=== PATIENT | female | born 1975 | race African-American/Black ===

== ENCOUNTER 2017-05-17 19:40 | Emergency (ER) | payer MEDICARE, MEDICAID ==
--- NOTE | 2017-05-17 20:30 | ER Document Report ---
ED Medical Screen (RME) - General Chief Complaint: Abdominal Pain Stated Complaint: ABDOMINAL PAIN,VOMITING Time Seen by Provider: 05/17/17 20:29 Notes: Patient reports approximately 2 days of fever chills and body aches. She also has cough and congestion. In addition she has vomiting. TRAVEL OUTSIDE OF THE [place] IN LAST 30 DAYS: No - Related Data Allergies/Adverse Reactions: Penicillins Allergy (Verified 05/17/17 20:26) Past Medical History Renal/ Medical History: Denies: Hx Peritoneal Dialysis Physical Exam - Vital signs Vitals: Temp Pulse Resp BP Pulse Ox 99.1 F 92 16 128/72 H 99 05/17/17 19:44 05/17/17 19:44 05/17/17 19:44 05/17/17 19:44 05/17/17 19:44 Course - Vital Signs Vital signs: Temp Pulse Resp BP Pulse Ox 99.1 F 92 16 128/72 H 99 05/17/17 19:44 05/17/17 19:44 05/17/17 19:44 05/17/17 19:44 05/17/17 19:44
--- NOTE | 2017-05-17 21:05 | RADIOLOGY REPORT (SQ) ---
EXAM DESCRIPTION: CHEST PA/LAT COMPLETED DATE/TIME: 05/17/2017 8:56 pm REASON FOR STUDY: cough/cp COMPARISON: None. EXAM PARAMETERS: NUMBER OF VIEWS: two views TECHNIQUE: Digital Frontal and Lateral radiographic views of the chest acquired. RADIATION DOSE: NA LIMITATIONS: none FINDINGS: LUNGS AND PLEURA: No opacities, masses or pneumothorax. No pleural effusion. MEDIASTINUM AND HILAR STRUCTURES: No masses or contour abnormalities. HEART AND VASCULAR STRUCTURES: Heart normal size. No evidence for failure. BONES: No acute findings. HARDWARE: None in the chest. OTHER: No other significant finding. IMPRESSION: NO SIGNIFICANT RADIOGRAPHIC FINDING IN THE CHEST. TECHNICAL DOCUMENTATION: JOB ID: [id number] Mobile Location, IP- All Rights Reserved
[2017-05-17 21:32] LABS: ABSOLUTE BASOPHILS # (AUTO) 0.1 10^3/uL (0.0-0.2); ABSOLUTE EOSINOPHILS # (AUTO) 0.1 10^3/uL (0.0-0.6); ABSOLUTE LYMPHOCYTES (AUTO) 3.6 10^3/uL (0.5-4.7); ABSOLUTE MONOCYTES (AUTO) 0.5 10^3/uL (0.1-1.4); ABSOLUTE NEUT (AUTO) 3.6 10^3/uL (1.7-8.2); BASOPHILS % (AUTO) 1.3 % (0-2); EOSINOPHILS % (AUTO) 1.5 % (0-6); HEMATOCRIT 37.9 % (36.0-47.0); HEMOGLOBIN 12.7 g/dL (12.0-15.5); HGB HCT DIFFERENCE 0.2; MEAN CORPUSCULAR HEMOGLOBIN 31.4 pg (27.0-33.4); MEAN CORPUSCULAR HGB CONC 33.5 g/dL (32.0-36.0); MEAN CORPUSCULAR VOLUME 94 fl (80-97); MONOCYTES % (AUTO) 6.9 % (3-13); RED BLOOD COUNT 4.03 10^6/uL (3.72-5.28); SEGMENTED NEUTROPHILS % (AUTO) 45.3 % (42-78); WHITE BLOOD COUNT 7.9 10^3/uL (4.0-10.5)
[2017-05-17 21:35] LABS: APPEARANCE,URINE SLIGHTLY-CLOUDY; BILIRUBIN,URINE NEGATIVE (NEGATIVE); GLUCOSE, URINE NEGATIVE (NEGATIVE); KETONES,URINE NEGATIVE (NEGATIVE); LEUKOCYTE ESTERASE,URINE NEGATIVE (NEGATIVE); NITRITE,URINE NEGATIVE (NEGATIVE); PROTEIN,URINE NEGATIVE (NEGATIVE); URINE SPECIFIC GRAVITY 1.009; UROBILINOGEN,URINE NEGATIVE mg/dL (<2.0)
[2017-05-17] MEDS ORDERED: ONDANSETRON HCL INJ/PF 4 MG/2 ML SDV IV ONE (22:12)
[2017-05-17] MEDS ORDERED: NORMAL SALINE 1000 ML 1,000 ML IV ONE (22:12)
--- NOTE | 2017-05-17 22:16 | ER Document Report ---
ED General - General Chief Complaint: Abdominal Pain Stated Complaint: ABDOMINAL PAIN,VOMITING Time Seen by Provider: 05/17/17 20:29 Notes: Patient is a 41-year-old female presents with complaint of cough and congestion as well as vomiting. She is says that she has been sick for a couple of days now. Initially started just has cough and congestion but now she is having trouble holding down food. She denies being around any sick contacts. She says her temp is been normal at home. She says she is abdominal pain is started after all the vomiting. No associated diarrhea. No blood in her emesis. She did use an inhaler at home. She denies history of asthma but says when she moved here in the past she developed pneumonia and she was given an inhaler for that that is why she had an inhaler at home. She does not smoke. No other complaints at this time. TRAVEL OUTSIDE OF THE [place] IN LAST 30 DAYS: No - Related Data Allergies/Adverse Reactions: Penicillins Allergy (Verified 05/17/17 20:26) Past Medical History - Social History Smoking Status: Never Smoker Chew tobacco use (# tins/day): No Frequency of alcohol use: None Drug Abuse: None Family History: Reviewed & Not Pertinent Patient has suicidal ideation: No Patient has homicidal ideation: No Renal/ Medical History: Denies: Hx Peritoneal Dialysis - Immunizations Hx Diphtheria, Pertussis, Tetanus Vaccination: No Review of Systems - Review of Systems Notes: My Normal Review Basic REVIEW OF SYSTEMS: CONSTITUTIONAL : Denies fever, chills, or sweats. Denies recent illness. EENT: Nasal congestion RESPIRATORY: cough GASTROINTESTINAL: Abdominal soreness. Vomiting GENITOURINARY: Denies difficulty urinating, painful urination, burning, frequency, or blood in urine. MUSCULOSKELETAL: Denies neck or back pain or joint pain or swelling. SKIN: Denies rash or skin lesions. NEUROLOGICAL: Denies altered mental status or loss of consciousness. Denies headache. Denies weakness or paralysis or loss of use of either side. Denies problems with gait or speech. Denies sensory or motor loss. ALL OTHER SYSTEMS REVIEWED AND NEGATIVE. Physical Exam - Vital signs Vitals: Temp Pulse Resp BP Pulse Ox 99.1 F 92 16 128/72 H 99 05/17/17 19:44 05/17/17 19:44 05/17/17 19:44 05/17/17 19:44 05/17/17 19:44 - Notes Notes: General Appearance: Well nourished, alert, cooperative, no acute distress, no obvious discomfort. Vitals: reviewed, See vital signs table. Head: no swelling or tenderness to the head Eyes: PERRL, EOMI, Conjuctiva clear Mouth: No decreasd moisture Throat: No tonsillar inflammation, No airway obstruction, No lymphadenopathy Neck: Supple, no neck tenderness Lungs: No wheezing, No rales, No rhonci, No accessory muscle use, good air exchange bilaterally. Heart: Normal rate, Regular rythm, No murmur, no rub Abdomen: Normal BS, soft, No rigidity, mild diffuse abdominal tenderness, No guarding, no rebound, Extremities: strength 5/5 in all extremities, good pulses in all extremities, no swelling or tenderness in the extremities, no edema. Skin: warm, dry, appropriate color, no rash Neuro: speech clear, oriented x 3, normal affect, responds appropriately to questions. Course - Re-evaluation Re-evalutation: 05/17/17 23:00 Patient's nausea is improved. We have given her some IV fluids. Laboratory evaluation is unremarkable. Symptoms seem consistent with a viral type infection. Informed her that she should still the low threshold to return to the ER immediately if she has increased abdominal pain, difficulty breathing, intractable vomiting, fevers, or she feels that she is worsening in any way. Patient agrees with plan and will be discharged home. Dictation of this chart was performed using voice recognition software; therefore, there may be some unintended grammatical errors. - Vital Signs Vital signs: Temp Pulse Resp BP Pulse Ox 99.1 F 92 16 128/72 H 99 05/17/17 19:44 05/17/17 19:44 05/17/17 19:44 05/17/17 19:44 05/17/17 19:44 - Laboratory Result Diagrams: 05/17/17 21:00 05/17/17 22:02 Laboratory results interpreted by me: 05/17/17 05/17/17 21:00 22:02 Est GFR (Non-Af Amer) 50 L Urine Blood SMALL H Discharge - Discharge Clinical Impression: Cough Vomiting Qualifiers: Vomiting type: unspecified Vomiting Intractability: non-intractable Nausea presence: with nausea Qualified Code(s): R11.2 - Nausea with vomiting, unspecified Condition: Good Disposition: HOME, SELF-CARE Additional Instructions: Lab tests looking at your blood were normal. We have given you some IV fluids. I suspect that most likely your symptoms are related to a viral infection. These are usually self-limiting in your body will usually be able to fight them off. It is extremely important that he do stay well-hydrated. Please take the medication as prescribed to help you with your nausea. Please return to the ER immediately if at any time you feel that you are getting worse, you have fevers , we have abdominal pain, or if you have intractable vomiting. Please follow- up with your doctor on Monday for close reevaluation. Prescriptions: Ondansetron [Zofran Odt 4 mg Tablet] 1 tab PO Q4H PRN #15 tab.rapdis PRN Reason: For Nausea/Vomiting Forms: Return to Work Referrals: NADYA LING MD [Primary Care Provider] - 05/22/17
[2017-05-17 22:32] LABS: ALANINE AMINOTRANSFERASE 36 U/L (9-52); ALBUMIN 4.4 g/dL (3.5-5.0); ALKALINE PHOSPHATASE 92 U/L (38-126); ANION GAP 11 (5-19); ASPARTATE AMINO TRANSFERASE 23 U/L (14-36); BILIRUBIN,DIRECT 0.3 mg/dL (0.0-0.4); BILIRUBIN,TOTAL 0.3 mg/dL (0.2-1.3); BLOOD UREA NITROGEN 18 mg/dL (7-20); CALCIUM 10.2 mg/dL (8.4-10.2); CARBON DIOXIDE 27 mmol/L (22-30); CHLORIDE 104 mmol/L (98-107); CREATININE RESULT 1.18 mg/dL (0.52-1.25); GLUCOSE 96 mg/dL (75-110); LIPASE 104.1 U/L (23-300); POTASSIUM 3.7 mmol/L (3.6-5.0); SODIUM 141.9 mmol/L (137-145); TOTAL PROTEIN 7.5 g/dL (6.3-8.2)
[2017-05-17 23:09] VITALS: BP 122/75
== END 2017-05-17 23:08 | disposition home or self-care (01) ==
LOC: ER 19:40
DX: R05 Cough (principal); R11.2 Nausea with vomiting, unspecified; R10.817 Generalized abdominal tenderness; R09.81 Nasal congestion; Z87.01 Personal history of pneumonia (recurrent); Z88.0 Allergy status to penicillin
CPT/HCPCS: 99284; 96374; 36415; 83690; 85025; 81025; 80053; 81001; 71020; J2405; J7030

== ENCOUNTER 2017-05-26 20:02 | Emergency (ER) | payer MEDICARE, MEDICAID ==
--- NOTE | 2017-05-26 22:21 | ER Document Report ---
ED General - General Chief Complaint: Swelling Stated Complaint: SWELLING IN HANDS AND FEET Time Seen by Provider: 05/26/17 21:35 Notes: Patient is a 41-year-old female with a past medical history of chronic pain and fibromyalgia who presents with concerns of swelling to her hands and feet. She was referred by her primary care doctor. She has not had a prior evaluation for this however by her primary physician. She states that this is been ongoing for the past 2-3 weeks and nothing is new or different today. Notes an associated constant, cramping, throbbing pain to the hands and feet. Denies any fever or constitutional symptoms. She has not noted any lesions or rashes to the affected area. She denies a history of similar symptoms in the past although does note that she frequently has generalized body pain secondary to her fibromyalgia. TRAVEL OUTSIDE OF THE [place] IN LAST 30 DAYS: No - Related Data Allergies/Adverse Reactions: Penicillins Allergy (Verified 05/26/17 22:38) Home Medications: Current Home Medications Fentanyl [Fentanyl] 1 each TD Q3D 05/26/17 [History] Fesoterodine Fumarate [Toviaz] 1 tab PO DAILY 05/26/17 [History] Gabapentin [Gabapentin] 1 tab PO TID 05/26/17 [History] Ibuprofen [Motrin 800 mg Tablet] 1 tab PO TID PRN 05/26/17 [History] Milnacipran HCl [Savella] 1 tab PO BID 05/26/17 [History] Oxycodone HCl [Oxycodone HCl] 1 tab PO DAILY 05/26/17 [History] Pentosan Polysulfate Sodium [Elmiron 100 mg Capsule] 1 cap PO TID 05/26/17 [ History] Tizanidine HCl [Tizanidine HCl] 1 tab PO BID 05/26/17 [History] Trazodone HCl 1 tab PO DAILY 05/26/17 [History] Past Medical History - General Information source: Patient - Social History Smoking Status: Never Smoker Frequency of alcohol use: None Drug Abuse: None Family History: Reviewed & Not Pertinent Patient has suicidal ideation: No Patient has homicidal ideation: No Renal/ Medical History: Denies: Hx Peritoneal Dialysis - Immunizations Hx Diphtheria, Pertussis, Tetanus Vaccination: No Review of Systems - Review of Systems Notes: Constitutional: Negative for fever. HENT: Negative for sore throat. Eyes: Negative for visual changes. Cardiovascular: Negative for chest pain. Respiratory: Negative for shortness of breath. Gastrointestinal: Negative for abdominal pain, vomiting or diarrhea. Genitourinary: Negative for dysuria. Musculoskeletal: Negative for back pain. Skin: Negative for rash. Neurological: Negative for headaches, weakness or numbness. 10 point ROS negative except as marked above and in HPI. Physical Exam - Vital signs Vitals: Temp Pulse Resp BP Pulse Ox 97.9 F 75 16 122/74 100 05/26/17 20:25 05/26/17 20:25 05/26/17 20:25 05/26/17 20:25 05/26/17 20:25 Interpretation: Normal Notes: PHYSICAL EXAMINATION: GENERAL: Well-appearing, well-nourished and in no acute distress. HEAD: Atraumatic, normocephalic. EYES: Pupils equal round and reactive to light, extraocular movements intact, sclera anicteric, conjunctiva are normal. ENT: nares patent, oropharynx clear without exudates. Moist mucous membranes. NECK: Normal range of motion, supple without lymphadenopathy LUNGS: Breath sounds clear to auscultation bilaterally and equal. No wheezes rales or rhonchi. HEART: Regular rate and rhythm without murmurs ABDOMEN: Soft, nontender, normoactive bowel sounds. No guarding, no rebound. No masses appreciated. EXTREMITIES: Normal range of motion, no pitting or edema. No cyanosis. NEUROLOGICAL: No focal neurological deficits. Moves all extremities spontaneously and on command. PSYCH: Normal mood, normal affect. SKIN: Warm, Dry, normal turgor, no rashes or lesions noted. Course - Re-evaluation Re-evalutation: 05/26/17 22:21 Patient presents with multiple vague complaints that did not appear to be concerning for any acute life-threatening pathology. Vitals are within normal limits at triage and at time of discharge. Physical examination is unremarkable. There is no evidence whatsoever of swelling in the hands or feet. Patient has tolerated oral intake without difficulty. Patient was not noted to be in distress at any point during their ER visit. At this time, based on the reassuring evaluation, I do not suspect an acute CA, pulmonary embolus, aortic dissection, acute intra-abdominal pathology, stroke, or sepsis.Will discharge with return precautions and follow-up recommendations. Verbal discharge instructions given a the bedside and opportunity for questions given. Medication warnings reviewed. Patient is in agreement with this plan and has verbalized understanding of return precautions and the need for primary care follow-up in the next 24-72 hours. 05/27/17 04:02 - Vital Signs Vital signs: Temp Pulse Resp BP Pulse Ox 97.7 F 55 L 18 100/58 L 98 05/26/17 23:27 05/26/17 23:27 05/26/17 23:27 05/26/17 23:27 05/26/17 23:27 - Laboratory Result Diagrams: 05/26/17 22:10 05/26/17 22:10 Laboratory results interpreted by me: 05/26/17 22:10 RBC 3.69 L Hgb 11.7 L Hct 34.5 L Seg Neuts % (Manual) 29 L Lymphocytes % (Manual) 61 H Abs Lymphs (Manual) 4.8 H Discharge - Discharge Clinical Impression: Hand and foot pain Qualifiers: Laterality: unspecified laterality Qualified Code(s): M79.643 - Pain in unspecified hand Condition: Good Disposition: HOME, SELF-CARE Additional Instructions: Your labs are normal today. Follow-up with your primary care doctor. Your pain may be related to her fibromyalgia. Continue take your home medications as directed. Referrals: MARLENA ESCOBEDO FNP-C [Primary Care Provider] - Follow up as needed
[2017-05-26 22:26] LABS: HEMATOCRIT 34.5 % (36.0-47.0); HEMOGLOBIN 11.7 g/dL (12.0-15.5); HGB HCT DIFFERENCE 0.6; MEAN CORPUSCULAR HEMOGLOBIN 31.6 pg (27.0-33.4); MEAN CORPUSCULAR HGB CONC 33.8 g/dL (32.0-36.0); MEAN CORPUSCULAR VOLUME 94 fl (80-97); RED BLOOD COUNT 3.69 10^6/uL (3.72-5.28); RED CELL DISTRIBUTION WIDTH 13.9 % (11.5-14.0); WHITE BLOOD COUNT 7.3 10^3/uL (4.0-10.5)
[2017-05-26 22:46] LABS: ALANINE AMINOTRANSFERASE 39 U/L (9-52); ALBUMIN 4.3 g/dL (3.5-5.0); ALKALINE PHOSPHATASE 95 U/L (38-126); ANION GAP 9 (5-19); ASPARTATE AMINO TRANSFERASE 31 U/L (14-36); BILIRUBIN,DIRECT 0.4 mg/dL (0.0-0.4); BILIRUBIN,TOTAL 0.4 mg/dL (0.2-1.3); BLOOD UREA NITROGEN 12 mg/dL (7-20); CALCIUM 9.9 mg/dL (8.4-10.2); CARBON DIOXIDE 26 mmol/L (22-30); CHLORIDE 106 mmol/L (98-107); CREATININE RESULT 0.86 mg/dL (0.52-1.25); GLUCOSE 87 mg/dL (75-110); SODIUM 141.2 mmol/L (137-145); TOTAL PROTEIN 7.4 g/dL (6.3-8.2)
[2017-05-26 22:50] LABS: BASOPHILS % (MANUAL) 0 % (0-2); EOSINOPHILS % (MANUAL) 0 % (0-6); LYMPHOCYTES % (MANUAL) 61 % (13-45); TOTAL CELLS COUNTED 100
[2017-05-26 22:58] LABS: POIKILOCYTOSIS SLIGHT; TARGET CELLS SLIGHT
[2017-05-26] MEDS ORDERED: NAPROXEN 250 MG TABLET PO ONE (23:14)
[2017-05-26 23:32] VITALS: BP 100/58
== END 2017-05-26 23:30 | disposition home or self-care (01) ==
LOC: ER 20:02
DX: M79.643 Pain in unspecified hand (principal); M79.89 Other specified soft tissue disorders; G89.29 Other chronic pain; M79.7 Fibromyalgia; Z79.899 Other long term (current) drug therapy
CPT/HCPCS: 99283; 36415; 85025; 80053; A9270

== ENCOUNTER 2017-10-17 17:53 | Emergency (ER) | payer MEDICARE, MEDICAID ==
[2017-10-17] MEDS ORDERED: IBUPROFEN 800 MG TABLET PO ONE (20:23)
[2017-10-17] MEDS ORDERED: DEXAMETHASONE 4 MG TABLET PO ONE (20:23)
--- NOTE | 2017-10-17 20:25 | ER Document Report ---
ED Neck/Back Problem - General Chief Complaint: Back Pain Stated Complaint: BACK PAIN Time Seen by Provider: 10/17/17 20:05 Mode of Arrival: Ambulatory Information source: Patient Notes: 42-year-old female presents to ED for bilateral back pain since May when she had a fall and injured her back with a compression fraction. She states is not her stopped hurting since then and is even gotten worse right side is more tender than left. States the pain is a 5 out of 5. States she stopped and ibuprofen with no relief. States she has an appointment with [facility] on Monday but cannot stand until then. States she is using Biofreeze to the back. TRAVEL OUTSIDE OF THE [place] IN LAST 30 DAYS: No - HPI Patient complains to provider of: Lower back Onset: Other - Since May Onset: Chronic Timing: Still present Quality of pain: Burning, Sharp Severity: Severe Pain Level: 5 Recent injury: No Associated symptoms: Lower back pain - Radiates to buttocks Exacerbated by: Movement of trunk, Sitting position Relieved by: Nothing Similar symptoms previously: Yes Recently seen / treated by doctor: No - Related Data Allergies/Adverse Reactions: Penicillins Allergy (Verified 05/26/17 22:38) Past Medical History - General Information source: Patient - Social History Smoking Status: Never Smoker Cigarette use (# per day): No Chew tobacco use (# tins/day): No Smoking Education Provided: No Frequency of alcohol use: None Drug Abuse: None Lives with: Family Family History: Reviewed & Not Pertinent Patient has suicidal ideation: No Patient has homicidal ideation: No - Past Medical History Cardiac Medical History: Reports: Hx Hypercholesterolemia Pulmonary Medical History: Reports: Hx Asthma EENT Medical History: Reports: None Neurological Medical History: Reports: None Endocrine Medical History: Reports: None Renal/ Medical History: Reports: None Malignancy Medical History: Reports: None GI Medical History: Reports: None Musculoskeltal Medical History: Reports Hx Arthritis, Reports Hx Fibromyalgia, Reports Hx Musculoskeletal Deformity, Reports Hx Musculoskeletal Trauma Skin Medical History: Reports None Psychiatric Medical History: Reports: Hx Anxiety Traumatic Medical History: Reports: Hx Fractures - Compression fracture L1 May 2017 Infectious Medical History: Reports: None Past Surgical History: Reports: Hx Neurologic Surgery - Cervical fusion, Hx Orthopedic Surgery - R shoulder rotator cuff repair; R knee torn meniscus; R foot bunionectomy, - Immunizations Hx Diphtheria, Pertussis, Tetanus Vaccination: No Review of Systems - Review of Systems Notes: Constitutional: [PRESENT: as per HPI. ABSENT: chills, fever(s), headache(s), weight gain, weight loss] Eyes: [ABSENT: visual disturbances] Ears: [ABSENT: hearing changes] Cardiovascular: [ABSENT: chest pain, dyspnea on exertion, edema, orthropnea, palpitations] Respiratory: [ABSENT: cough, hemoptysis] Gastrointestinal: [ABSENT: abdominal pain, constipation, diarrhea, hematemesis, hematochezia, nausea, vomiting] Genitourinary: [ABSENT: dysuria, hematuria] Musculoskeletal: Complaining of low back pain left and right Integumentary: [ABSENT: rash, wounds] Neurological: [ABSENT: abnormal gait, abnormal speech, confusion, dizziness, focal weakness, syncope] Psychiatric: [ABSENT: anxiety, depression, homicidal ideation, suicidal ideation ] Endocrine: [ABSENT: cold intolerance, heat intolerance, menstrual abnormalities , polydipsia, polyuria] Hematologic/Lymphatic: [ABSENT: easy bleeding, easy bruising, lymphadenopathy] Physical Exam - Vital signs Vitals: Temp Pulse Resp BP Pulse Ox 98.5 F 65 17 114/71 100 10/17/17 18:22 10/17/17 18:22 10/17/17 18:22 10/17/17 18:22 10/17/17 18:22 - Notes Notes: PHYSICAL EXAMINATION: GENERAL: Well-appearing, well-nourished and in no acute distress. HEAD: Atraumatic, normocephalic. EYES: Pupils equal round and reactive to light, extraocular movements intact, conjunctiva are normal. ENT: Nares patent, oropharynx clear without exudates. Moist mucous membranes. NECK: Normal range of motion, supple without lymphadenopathy LUNGS: Breath sounds clear to auscultation bilaterally and equal. No wheezes rales or rhonchi. HEART: Regular rate and rhythm without murmurs ABDOMEN: Soft, nontender, nondistended abdomen. No guarding, no rebound. No masses appreciated. Female : deferred Musculoskeletal: Normal range of motion, no pitting or edema. No cyanosis. Low back pain since May 2017. She states she has not followed up with a primary doctor or orthopedics. She states she has a appointment with [facility] on Monday this week but she just felt like the pain was too bad. States she has been using ibuprofen and Biofreeze.. NEUROLOGICAL: Cranial nerves grossly intact. Normal speech, normal gait. Normal sensory, motor exams PSYCH: Normal mood, normal affect. SKIN: Warm, Dry, normal turgor, no rashes or lesions noted. Course - Re-evaluation Re-evalutation: 10/18/17 01:24 Denies any recent signs and symptoms of cauda equina, she has normal sensation to her buttocks and groin area, has normal sensation to bilateral legs. Has normal sensation to the lower back. Denies any loss of control of bowel bladder or loss of control of the muscles of the legs. Patient is able to walk with the even steady gait. Patient was treated with AirSense Wireless dispense pack in the emergency room and given a prescription for Flexeril. Patient to follow-up with the orthopedic doctor as instructed. - Vital Signs Vital signs: Temp Pulse Resp BP Pulse Ox 97.9 F 63 20 119/71 98 10/17/17 22:15 10/17/17 22:15 10/17/17 22:15 10/17/17 22:15 10/17/17 22:15 - Laboratory Laboratory results interpreted by me: 10/17/17 20:40 Urine Urobilinogen 2.0 H Discharge - Discharge Clinical Impression: Chronic back pain greater than 3 months duration Condition: Stable Disposition: HOME, SELF-CARE Additional Instructions: Chronic Pain Control Stress, inactivity, and depression make pain more severe regardless of the cause of the pain. Stress and poor physical condition can cause pain such as headaches and backache. Relaxation: Rest in a quiet place with your eyes closed for 20 minutes twice daily. Concentrate on a pleasant image, or simply "feel" your breathing. Clear your mind. Stress management: Deal with your "stressors." Either take action, or eliminate the stressor from your life. Don't let things hang over you. Accept those things you can't change. Nutrition: Eat small, balanced meals -- don't skip, don't overeat. Meals should be high-carbohydrate, low-sugar, low-fat. Exercise: Exercise helps painful conditions and eases stress. Get 30 minutes of moderate exercise, five days a week. Do an activity that does not flare your pain. Precautions: Pain which continues to disrupt daily activities, or which changes in nature, requires a medical evaluation. Pain Clinic referral is available. We do not manage chronic pain in the Emergency Department. We will try to appropriately help you through an acute flare of your chronic painful condition , but for on-going chronic pain that does not improve, you will need to see your private doctor or pain management nurse practitioner. We do not provide repeated medication management of chronic painful conditions. If you wish, we can provide the name of local pain management physicians. Chronic Back Pain Chronic back pain (pain persisting longer than three months) is a common problem. A medical evaluation can look for herniated disc, arthritis, osteoporosis, tumors, and infections. But at least half the time, there's no obvious treatable cause. Anxiety and depression tend to worsen back pain. Ibuprofen or other anti-inflammatory medicine can help. A heating pad, used for 15-20 minutes at a time, can ease pain. For this type of back pain, narcotic medicines should be avoided. Muscle relaxers are rarely helpful unless you're having spasms. Activity is important. Find an aerobic exercise program that your back can tolerate. Too much rest makes back pain worse. Specific back exercises are usually prescribed to strengthen the back and abdominal muscles. Often, a physical therapist can help. Avoid heavy lifting, working while bent over, or standing with both knees straight. Most back pain patients do better with a firm mattress. If new symptoms of a "herniated disc" (radiation of pain, numbness, or tingling down the back of the leg or weakness in the leg) occur, you should be re-examined. STEROID MEDICATION: You have been given a medicine of the cortisone/steroid class. This medication is used to control inflammation or allergy. It is usually only given for a short period of time, until the acute process subsides. There are usually no side effects from short-term use of cortisone-like medications. Some persons feel an increased sense of well-being and are not sleepy at bedtime. Long-term use of cortisone medications is best avoided, unless required for a severe condition. If your condition does not remit, or relapses after the course of corticosteroid medication, you should consult your physician. Ibuprofen Ibuprofen is an excellent, safe drug for pain control. In addition, it has potent antiinflammatory effects which are beneficial, especially in the treatment of injuries, arthritis, or tendonitis. It's best to take ibuprofen with food. Persons with ulcer disease or allergy to aspirin should notify their physician of this before taking ibuprofen. Take the medication exactly as prescribed. Don't take additional doses unless instructed to do so by your doctor. If you develop wheezing, shortness of breath, hives, faintness, stomach pain, vomiting, or dark black stools, return for re-evaluation at once. ICE PACKS: Apply ice packs frequently against the painful area. Many different schedules are recommended, such as "20 minutes on, 20 minutes off" or "one hour ice, two hours rest." If you need to work, you may need to go longer between ice treatments. You should plan to have the area ice packed AT LEAST one fourth of the time. The ice should be applied over the wrap, tape, or splint, or over a layer of cloth -- not directly against the skin. Some ice bags have a built-in cloth and can be put directly on the skin. WARM PACKS: After approximately two days, apply gentle heat (such as a heating pad or hot water bottle) for about 20 to 30 minutes about every two hours -- at least four times daily. Warmth and elevation will help you make a more rapid recovery , and will ease the pain considerably. Do not use HOT heat, and never apply heat for longer than 30 minutes. The continuous heat can invisibly damage skin and muscles -- even when no burn is seen on the surface. Damaged muscles can make you MORE sore. MUSCLE RELAXERS: Muscle relaxing medications are usually prescribed for acute muscle spasm or injury to the neck and back. They are often combined with antiinflammatory pain medication for increased relief. You may stop the muscle relaxer when the pain and stiffness have improved. Start the medication again if spasms recur. Muscle relaxers may cause drowsiness, especially with the first dose. Do not operate machinery or drive while under the effects of the medication. Most muscle relaxers last up to 24 hours. Do not combine the medication with alcohol. ORAL NARCOTIC MEDICATION: You have been given a AirSense Wireless dispense pack for pain control. This medication is a narcotic. It's best taken with food, as nausea can result if taken on an empty stomach. Don't operate machinery or drive within six hours of taking this medication. Do not combine this medicine with alcohol, or with any medication which can cause sedation (such as cold tablets or sleeping pills) unless you get permission from the physician. Narcotics tend to cause constipation. If possible, drink plenty of fluids and eat a diet high in fiber and fruits. FOLLOW-UP CARE: If you have been referred to a physician for follow-up care, call the physician s office for an appointment as you were instructed or within the next two days. If you experience worsening or a significant change in your symptoms, notify the physician immediately or return to the Emergency Department at any time for re-evaluation. Prescriptions: Cyclobenzaprine HCl [Flexeril 10 mg Tablet] 10 mg PO TIDP PRN #15 tab PRN Reason: Referrals: MARLENA ESCOBEDO FNP-C [Primary Care Provider] - Follow up as needed
[2017-10-17 21:00] LABS: APPEARANCE,URINE CLEAR; BILIRUBIN,URINE NEGATIVE (NEGATIVE); COLOR,URINE YELLOW; GLUCOSE, URINE NEGATIVE (NEGATIVE); KETONES,URINE NEGATIVE (NEGATIVE); LEUKOCYTE ESTERASE,URINE NEGATIVE (NEGATIVE); NITRITE,URINE NEGATIVE (NEGATIVE); PROTEIN,URINE NEGATIVE (NEGATIVE); URINE SPECIFIC GRAVITY 1.024
[2017-10-17] MEDS ORDERED: HYDROCODONE/ACETAMINOPHEN 5-325 MG (6 TAB/ER DISP) PO PRN (22:03)
[2017-10-17 22:17] VITALS: BP 119/71
== END 2017-10-17 22:17 | disposition home or self-care (01) ==
LOC: ER 17:53
DX: G89.29 Other chronic pain (principal); M54.5 Low back pain; J45.909 Unspecified asthma, uncomplicated; Z88.0 Allergy status to penicillin
CPT/HCPCS: 99283; 81001; A9270 ×3

== ENCOUNTER 2018-02-07 18:26 | Emergency (ER) | payer MEDICARE, MEDICAID ==
--- NOTE | 2018-02-07 19:52 | ER Document Report ---
ED GI/ - General Chief Complaint: Abdominal Pain Stated Complaint: NAUSEA Time Seen by Provider: 02/07/18 18:46 Mode of Arrival: Ambulatory Information source: Patient TRAVEL OUTSIDE OF THE [place] IN LAST 30 DAYS: No - HPI Patient complains to provider of: Vaginal discharge Notes: 02/07/18 19:51 Patient is here with complaints of vaginal discharge. Her partner is being seen for possible sexually transmitted infection as well. She states that over the last 3 or 4 days she has been having some discharge. She also complains some mild discomfort in her pelvic area. She denies any dysuria or hematuria. No abdominal pain. No nausea, vomiting, diarrhea. No flank pain. Nothing seems to make the symptoms better or worse. No chest pain or shortness of breath. No rash. - Related Data Allergies/Adverse Reactions: Penicillins Allergy (Verified 02/07/18 18:29) Past Medical History - Social History Smoking Status: Former Smoker Frequency of alcohol use: None Drug Abuse: None Family History: Reviewed & Not Pertinent Patient has suicidal ideation: No Patient has homicidal ideation: No - Past Medical History Cardiac Medical History: Reports: Hx Hypercholesterolemia Pulmonary Medical History: Reports: Hx Asthma Renal/ Medical History: Denies: Hx Peritoneal Dialysis Musculoskeltal Medical History: Reports Hx Arthritis, Reports Hx Fibromyalgia, Reports Hx Musculoskeletal Deformity, Reports Hx Musculoskeletal Trauma Psychiatric Medical History: Reports: Hx Anxiety Traumatic Medical History: Reports: Hx Fractures - Compression fracture L1 May 2017 Past Surgical History: Reports: Hx Neurologic Surgery - Cervical fusion, Hx Orthopedic Surgery - R shoulder rotator cuff repair; R knee torn meniscus; R foot bunionectomy, - Immunizations Hx Diphtheria, Pertussis, Tetanus Vaccination: No Review of Systems - Review of Systems -: Yes All other systems reviewed and negative Physical Exam - Vital signs Vitals: Temp Pulse Resp BP Pulse Ox 98.6 F 65 16 122/83 100 02/07/18 18:42 02/07/18 18:42 02/07/18 18:42 02/07/18 18:42 02/07/18 18:42 - Notes Notes: GENERAL: alert, cooperative, nontoxic, no distress. HEAD: normocephalic, atraumatic EYES: conjunctiva pink without discharge, no external redness or swelling. EARS: no external swelling, no external redness NOSE: atraumatic, no external swelling MOUTH/THROAT: mucous membranes moist and pink, posterior pharynx without erythema, swelling, exudate. No trismus or drooling. NECK: soft, supple, full range of motion, no meningismus. CHEST: no distress, lungs clear and equal throughout. No wheezing, rales, rhonchi. CARDIAC: regular rate and rhythm, no murmur, normal capillary refill, normal pulses. No peripheral edema noted. ABDOMEN: Soft, nontender. No rebound tenderness or guarding. No mass. BACK: full range of motion, no CVA tenderness. EXTREMITIES: full range of motion of all extremities. No redness, no swelling. NEURO: alert and oriented x 3, no focal deficits, full range of motion of all extremities. PYSCH: appropriate mood, affect. Patient is cooperative. SKIN: pink, warm, dry, no rash. : Performed with female aerial sprayer at the bedside. No external lesions. Small amount of thin vaginal discharge present. Cervix is closed. No vaginal bleeding. No cervical motion tenderness, adnexal tenderness or masses on bimanual Course - Re-evaluation Re-evalutation: 02/07/18 20:58 Patient is nontoxic-appearing with stable vitals. She is here with complaints of vaginal discharge. Her partner is being seen for possible sexually transmitted infection exposure as well. She denies fever. Complains some mild but has no tenderness on exam. She has no fever. No dysuria. Her exam is benign. Urinalysis shows no signs of infection. Urine is negative. Gonorrhea chlamydia cultures are currently pending. Wet prep is negative. Patient was treated with Rocephin and Zithromax prophylactically due to her potential exposure. She will was instructed to follow-up with her doctor the next available appointment. Follow-up sooner for worsening pain, fever, persistent vomiting, or for any further concerns. 02/07/18 20:59 The patient is noted to have elevated blood pressure during today's emergency department visit. The patient was informed of this finding. The patient was instructed that this may be related to pre-hypertension and requires further evaluation with a primary care provider. The patient has no hypertensive symptoms at this time. The patient's emergency department workup and current diagnosis were explained to the patient and or family. Follow-up instructions were provided. Medications if prescribed were discussed. Instructions for when to return to the emergency department including specific worrisome symptoms were discussed with the patient and/or family. - Vital Signs Vital signs: Temp Pulse Resp BP Pulse Ox 98.6 F 65 16 122/83 100 02/07/18 18:42 02/07/18 18:42 02/07/18 18:42 02/07/18 18:42 02/07/18 18:42 - Laboratory Laboratory results interpreted by me: 02/07/18 19:37 Urine Ketones TRACE H Urine Blood SMALL H Urine Urobilinogen 4.0 H Urine Ascorbic Acid 40 H Discharge - Discharge Clinical Impression: Vaginal discharge Condition: Stable Disposition: HOME, SELF-CARE Instructions: Vaginitis ([facility]) Additional Instructions: Follow-up with your doctor at the next available appointment. Follow-up sooner for worsening pain, fever, persistent vomiting, or any further concerns. Your blood pressure was elevated during today's visit. Have this rechecked with your doctor. Forms: Elevated Blood Pressure, Smoking Cessation Education Referrals: MARLENA ESCOBEDO FNP-C [Primary Care Provider] - Follow up as needed
[2018-02-07] MEDS ORDERED: CEFTRIAXONE INJ 250 MG VIAL IM ONE (20:02)
[2018-02-07] MEDS ORDERED: AZITHROMYCIN 250 MG TABLET PO ONE (20:02)
[2018-02-07 20:03] LABS: APPEARANCE,URINE SLIGHTLY-CLOUDY; BILIRUBIN,URINE NEGATIVE (NEGATIVE); CALCIUM OXALATE CRYSTALS,URINE TOO NUMEROUS TO CNT /HPF; COLOR,URINE YELLOW; GLUCOSE, URINE NEGATIVE (NEGATIVE); KETONES,URINE TRACE mg/dL (NEGATIVE); LEUKOCYTE ESTERASE,URINE NEGATIVE (NEGATIVE); NITRITE,URINE NEGATIVE (NEGATIVE); PROTEIN,URINE NEGATIVE (NEGATIVE)
[2018-02-07 20:27] LABS: BACTERIA (WET MOUNT) 3+ BACTERIA SEEN; RBCS (WET MOUNT) NO RBCS SEEN; T.VAGINALIS (WET MOUNT) NO TRICHOMONAS SEEN; WBCS (WET MOUNT) 2+ WBCS SEEN; YEAST (WET MOUNT) NO YEAST SEEN
[2018-02-07 21:21] VITALS: BP 121/75
[2018-02-07 21:55] LABS: CHLAM PCR NOT DETECTED (NOT DETECT); GON PCR NOT DETECTED (NOT DETECT)
== END 2018-02-07 21:15 | disposition home or self-care (01) ==
LOC: ER 18:26
DX: N89.8 Other specified noninflammatory disorders of vagina (principal); R19.8 Other specified symptoms and signs involving the digestive system and abdomen; R03.0 Elevated blood-pressure reading, without diagnosis of hypertension; J45.909 Unspecified asthma, uncomplicated; Z20.2 Contact with and (suspected) exposure to infections with a predominantly sexual mode of transmission; Z88.0 Allergy status to penicillin; Z87.891 Personal history of nicotine dependence
CPT/HCPCS: 99284; 96372; 87210; 81025; 81001; 87491; 87591; A9270; J0696

== ENCOUNTER 2018-07-06 03:49 | Emergency (ER) | payer MEDICARE, MEDICAID ==
--- NOTE | 2018-07-06 04:34 | ER Document Report ---
ED General - General Chief Complaint: Abdominal Pain Stated Complaint: NAUSEA Time Seen by Provider: 07/06/18 03:58 Notes: 42-year-old female with a history of fibromyalgia chronic pain and continuous narcotic use presents with abdominal pain/discomfort and vomiting. She says that for the last month or 6 weeks she has had intermittent feeling of "water in my throat" right before she needs to vomit. She has not vomiting much and is generally just nauseous. This occurs at all times throughout the day and is worse after eating including tonight which made her come to the ED. She does not currently have abdominal pain. She has no vaginal bleeding and has not had a period in over a decade. She is . She was evaluated in the last couple of weeks here in the ED with full abdominal workup all of which was negative including STD testing. She denies right upper quadrant pain. She denies a gallstone history. TRAVEL OUTSIDE OF THE [place] IN LAST 30 DAYS: No - Related Data Allergies/Adverse Reactions: Penicillins Allergy (Verified 02/07/18 18:29) Past Medical History - Social History Smoking Status: Unknown if Ever Smoked Family History: Reviewed & Not Pertinent - Medical History Medical History: Other - Fibromyalgia chronic pain narcotic use - Past Medical History Cardiac Medical History: Reports: Hx Hypercholesterolemia Pulmonary Medical History: Reports: Hx Asthma Renal/ Medical History: Denies: Hx Peritoneal Dialysis Musculoskeletal Medical History: Reports Hx Arthritis, Reports Hx Fibromyalgia, Reports Hx Musculoskeletal Deformity, Reports Hx Musculoskeletal Trauma Psychiatric Medical History: Reports: Hx Anxiety Traumatic Medical History: Reports: Hx Fractures - Compression fracture L1 May 2017 Past Surgical History: Reports: Hx Neurologic Surgery - Cervical fusion, Hx Orthopedic Surgery - R shoulder rotator cuff repair; R knee torn meniscus; R foot bunionectomy, - Immunizations Hx Diphtheria, Pertussis, Tetanus Vaccination: No Review of Systems - Review of Systems Notes: REVIEW OF SYSTEMS GEN: Denies fever, chills, weight loss ENT: Denies sore throat, nasal discharge, ear pain EYES: Denies blurry vision, eye pain, discharge CV: Denies chest pain, palpitations, edema RESP: Denies cough, shortness of breath, wheezing GI: Remittent abdominal pain with nausea MSK: Denies joint pain/swelling, edema, SKIN: Denies rash, skin lesions LYMPH: Denies swollen glands/lymph nodes NEURO: Denies headache, focal weakness or numbness, dizziness PSYCH: Denies depression, suicidal or homicidal ideation PHYSICAL EXAMINATION General: No acute distress, well-nourished Head: Atraumatic, normocephalic ENT: Mouth normal, oropharynx moist, no exudates or tonsillar enlargement Eyes: Conjunctiva normal, pupils equal, lids normal Neck: No JVD, supple, no guarding CVS: Normal rate, regular rhythm, no murmurs Resp: No resp distress, equal and normal breath sounds bilaterally GI: Nondistended, soft, no tenderness to palpation, no rebound or guarding Ext: No deformities, no edema, normal range of motion in upper and lower ext Back: No CVA or midline TTP Skin: No rash, warm Lymphatic: No lymphadeopathy noted Neuro: Awake, alert. Face symmetric. GCS 15. Physical Exam - Vital signs Vitals: Temp Pulse Resp BP Pulse Ox 97.9 F 74 16 125/76 99 07/06/18 03:49 07/06/18 03:49 07/06/18 03:49 07/06/18 03:49 07/06/18 03:49 Course - Re-evaluation Re-evalutation: 07/06/18 04:53 Patient presents with over a month of intermittent abdominal discomfort possible GERD symptoms and nausea. She is not vomiting very much. She has a history of opioid use, chronically and fibromyalgia but does not have any serious abdominal diagnoses. Never had endoscopy. Not taking antacids. Evaluated recently in the ED with a negative workup. Today vitals are normal with no abdominal tenderness. Will rule out . Will start on lansoprazole and gives as needed Zofran. I told the patient she may need a referral to GI, and she is able to follow-up with her primary care. She is continuously tolerating p.o. I have a low suspicion for an acute abdominal issue, and do not believe she needs reimaging. I have discussed with the patient there likely diagnosis, aftercare plan, follow-up plans and my usual and customary return precautions. They verbalized understanding of this. - Vital Signs Vital signs: Temp Pulse Resp BP Pulse Ox 97.9 F 74 16 125/76 99 07/06/18 03:49 07/06/18 03:49 07/06/18 03:49 07/06/18 03:49 11/16/18 03:49 Discharge - Discharge Clinical Impression: Nausea and vomiting Qualifiers: Vomiting type: unspecified Vomiting Intractability: non-intractable Qualified Code(s): R11.2 - Nausea with vomiting, unspecified Condition: Good Disposition: HOME, SELF-CARE Prescriptions: Lansoprazole [Heartburn Treatment 24 Hour] 15 mg PO DAILY #30 capsule. Ondansetron [Zofran Odt 4 mg Tablet] 1 - 2 tab PO Q4H PRN #15 tab.rapdis PRN Reason: For Nausea/Vomiting Referrals: MARLENA ESCOBEDO FNP-C [Primary Care Provider] - Follow up as needed
[2018-07-06 06:49] VITALS: BP 109/70
== END 2018-07-06 06:45 | disposition home or self-care (01) ==
LOC: ER 03:49
DX: R11.2 Nausea with vomiting, unspecified (principal); R09.89 Other specified symptoms and signs involving the circulatory and respiratory systems; R10.9 Unspecified abdominal pain; J45.909 Unspecified asthma, uncomplicated; M79.7 Fibromyalgia; Z79.891 Long term (current) use of opiate analgesic; Z88.0 Allergy status to penicillin
CPT/HCPCS: 81025; 99284

== ENCOUNTER 2018-10-24 06:27 | Inpatient (IN) | payer MEDICARE, MEDICAID ==
--- NOTE | 2018-10-24 07:29 | ER Document Report ---
ED General - General Chief Complaint: Chest Wall Pain Stated Complaint: CHEST PAIN Time Seen by Provider: 10/24/18 06:56 Primary Care Provider: MARLENA ESCOBEDO FNP-C [NO LOCAL MD] - Follow up as needed Notes: 43-year-old female presents to the ER complaining of sharp chest pain when she breathes. Patient stated to be going on for 2 weeks. It began when she developed a sore throat cough muscle aches. She is coughing up green yellow sputum. The patient went to [place] and got prescription for antibiotics. Stated she has gotten better from the sore throat cough and congestion portion of this however she has had sharp chest pain ever since she describes it on the left side of her chest and goes to her back and hurts when she moves it hurts when she takes a deep breath she describes it as and rates it as severe and is sharp. It is worse with movement and taking a deep breath. Denies calf pain or leg swelling. Has no history of DVT or PE in the past. On review of systems the patient does complain of black tarry stools for the last month. She is felt a lot of malaise and fatigue. But did not think a lot of it. TRAVEL OUTSIDE OF THE [place] IN LAST 30 DAYS: No - Related Data Allergies/Adverse Reactions: Penicillins Allergy (Verified 10/24/18 08:18) Past Medical History - Social History Smoking Status: Smoker,Current Status Unk Family History: Reviewed & Not Pertinent - Past Medical History Cardiac Medical History: Reports: Hx Hypercholesterolemia Pulmonary Medical History: Reports: Hx Asthma Renal/ Medical History: Denies: Hx Peritoneal Dialysis Musculoskeletal Medical History: Reports Hx Arthritis, Reports Hx Fibromyalgia, Reports Hx Musculoskeletal Deformity, Reports Hx Musculoskeletal Trauma Psychiatric Medical History: Reports: Hx Anxiety Traumatic Medical History: Reports: Hx Fractures - Compression fracture L1 May 2017 Past Surgical History: Reports: Hx Neurologic Surgery - Cervical fusion, Hx Orthopedic Surgery - R shoulder rotator cuff repair; R knee torn meniscus; R foot bunionectomy, - Immunizations Hx Diphtheria, Pertussis, Tetanus Vaccination: No Review of Systems - Review of Systems Constitutional: Chills, Fever, Malaise EENT: Throat pain Cardiovascular: Chest pain. denies: Palpitations, Heart racing, Edema Respiratory: Cough, Hurts to breathe, Short of breath Gastrointestinal: Black stools Genitourinary: denies: Discharge, Frequency, Hematuria Musculoskeletal: Back pain Neurological/Psychological: Weakness. denies: Headaches -: Yes All other systems reviewed and negative Physical Exam - Vital signs Vitals: Temp Pulse Resp BP Pulse Ox 99.1 F 84 18 98/60 L 99 10/24/18 06:39 10/24/18 06:39 10/24/18 06:39 10/24/18 06:39 10/24/18 06:39 - Notes Notes: GENERAL_APPEARANCE: well_nourished, alert, cooperative VITALS: reviewed, see vital signs table. HEAD: no_swelling\tenderness on the head. EYES: PERRL, EOMI, conjunctiva_clear. NOSE: no_nasal_discharge. MOUTH: (-)decreased moisture. THROAT: no_throat_inflammation, no_airway_obstruction. no_lymphadenopathy NECK: supple, no_neck_tenderness, (-)thyromegaly. BACK: no_back_tenderness. CHEST_WALL: Left parasternal discomfort no crepitus and subcutaneous emphysema this is along the left parasternal cartilages. LUNGS: no_wheezing, no_rales, no_rhonchi, (-)accessory muscle use, good air exchange bilateral. HEART: normal_rate, normal_rhythm, normal_S1, normal_S2, (-)S3, (-)S4, no_murmur, no_rub. ABDOMEN: normal_BS, soft, no_abd_tenderness, (-)guarding, (-)rebound, no_organomegaly, no_abd_masses. EXTREMITIES: good pulses in all_extremities, no_swelling\tenderness in the extremities, no_edema. SKIN: warm, dry, good_color, no_rash. MENTAL_STATUS: speech_clear, oriented_X_3, normal_affect, resp onds_appropriately to questions. Course - Re-evaluation Re-evalutation: 10/24/18 07:28 43-year-old female comes into the ER complaining of pleuritic chest pain for the last 2 weeks. She has no history of DVT or PE in the past. She did have what sounded to be either a bronchitis or URI 2 weeks ago and was treated for that however she persistently has had sharp chest pain with inspiration and movement. This may be chest wall pain versus pneumonia versus pleurisy versus pulmonary embolism. Since she has had this persistently for 2 weeks we will go ahead and scan her chest. Other differentials include aortic dissection though I think this is a lot less likely. Also get EKG and enzymes however her clinical history does not seem consistent with ischemic coronary artery disease. 10/24/18 11:03 The patient does complain of black tarry stools for the last month on review of systems her hemoglobin is 8.2 last hemoglobin had in 2017 was above 12. With nurse in the room the patient consented and agreed and we did a digital rectal exam which showed no masses no external or internal hemorrhoids good rectal tone and dark stool which was strongly guaiac positive. We will add a type and screen to the blood work the patient has never seen a GI doctor before. Speak with the hospitalist service for hospitalization. - Vital Signs Vital signs: Temp Pulse Resp BP Pulse Ox 99.1 F 84 14 102/71 100 10/24/18 06:39 10/24/18 06:39 10/24/18 10:01 10/24/18 10:00 10/24/18 10:01 - Laboratory Result Diagrams: 10/24/18 07:45 10/24/18 07:45 Laboratory results interpreted by me: 10/24/18 10/24/18 07:45 07:45 RBC 2.59 L Hgb 8.2 L Hct 24.6 L RDW 14.9 H BUN 23 H Est GFR (Non-Af Amer) 59 L - Diagnostic Test Radiology reviewed: Reports reviewed Radiology results interpreted by me: 10/24/18 11:03 Chest/Abdomen CTA 10/24/18 07:26 IMPRESSION: 1. No evidence for acute pulmonary emboli. 2. Bibasilar scar or atelectasis, more so on the right. A focal area of pleural thickening in the right lower lobe, best noted on coronal image 58, series 601. This finding may be related to inflammatory changes, with other etiologies not entirely excluded. A follow-up noncontrast CT chest examination is suggested in three months. Discharge - Discharge Clinical Impression: Malaise and fatigue, Dyspnea, Pleuritic chest pain GI bleed Qualifiers: GI bleed type/associated pathology: unspecified peptic ulcer Qualified Code(s): K27.4 - Chronic or unspecified peptic ulcer, site unspecified, with hemorrhage Condition: Good Disposition: ADMITTED INPATIENT Admitting Provider: Hospitalist Unit Admitted: Telemetry Referrals: MARLENA ESCOBEDO FNP-C [NO LOCAL MD] - Follow up as needed
[2018-10-24 08:01] LABS: ABSOLUTE EOSINOPHILS # (AUTO) 0.1 10^3/uL (0.0-0.6); ABSOLUTE LYMPHOCYTES (AUTO) 3.2 10^3/uL (0.5-4.7); ABSOLUTE MONOCYTES (AUTO) 0.5 10^3/uL (0.1-1.4); ABSOLUTE NEUT (AUTO) 4.7 10^3/uL (1.7-8.2); BASOPHILS % (AUTO) 0.3 % (0-2); EOSINOPHILS % (AUTO) 0.6 % (0-6); HEMATOCRIT 24.6 % (36.0-47.0); HEMOGLOBIN 8.2 g/dL (12.0-15.5); LYMPHOCYTES % (AUTO) 37.5 % (13-45); MEAN CORPUSCULAR HEMOGLOBIN 31.9 pg (27.0-33.4); MEAN CORPUSCULAR HGB CONC 33.5 g/dL (32.0-36.0); MEAN CORPUSCULAR VOLUME 95 fl (80-97); MONOCYTES % (AUTO) 6.2 % (3-13); PLATELET COUNT 428 10^3/uL (150-450); RED BLOOD COUNT 2.59 10^6/uL (3.72-5.28); RED CELL DISTRIBUTION WIDTH 14.9 % (11.5-14.0); SEGMENTED NEUTROPHILS % (AUTO) 55.4 % (42-78); TOTAL CELLS COUNTED % (AUTO) 100 %; WHITE BLOOD COUNT 8.5 10^3/uL (4.0-10.5)
[2018-10-24 08:18] LABS: ANION GAP 8 (5-19); BLOOD UREA NITROGEN 23 mg/dL (7-20); CALCIUM 9.5 mg/dL (8.4-10.2); CARBON DIOXIDE 29 mmol/L (22-30); CHLORIDE 104 mmol/L (98-107); GLUCOSE 92 mg/dL (75-110); POTASSIUM 4.7 mmol/L (3.6-5.0); SODIUM 140.9 mmol/L (137-145)
--- NOTE | 2018-10-24 10:08 | RADIOLOGY REPORT (SQ) ---
EXAM DESCRIPTION: CTA CHEST COMPLETED DATE/TIME: 10/24/2018 9:46 am REASON FOR STUDY: Pleuritic chest pain COMPARISON: None. TECHNIQUE: CT scan of the chest performed using helical scanning technique with dynamic intravenous contrast injection. Images reviewed with lung, soft tissue and bone windows. Reconstructed coronal and sagittal MPR images reviewed. Additional 3 dimensional post-processing performed to develop Maximal Intensity Projection images (LA P). All images stored on PACS. All CT scanners at this facility use dose modulation, iterative reconstruction, and/or weight based d osing when appropriate to reduce radiation dose to as low as reasonably achievable (ALARA). [facility]: Dose Right [facility]: CareDose [facility]: Dose Right [facility]: Teradose 4D [facility]: SaveFans! CONTRAST TYPE AND DOSE: contrast/concentration: Isovue 350.00 mg/ml; Total Contrast Delivered: 71.0 ml; Total Saline Delivered: 90.0 ml Contrast bolus optimized for the pulmonary arteries. Not diagnostic for the aorta. RENAL FUNCTION: Creatinine - 1.02 BUN=23 RADIATION DOSE: CT Rad equipment meets quality standard of care and radiation dose reduction techniq ues were employed. CTDIvol: 14.3 - 19.8 mGy. DLP: 508 mGy-cm. . LIMITATIONS: None. FINDINGS: LUNGS AND PLEURA: Bibasilar scar or atelectasis, more so on the right. A focal air pleur al thickening in the right lower lobe, best noted on coronal image 58, series 601. This finding may be related inflammatory changes, with other etiologies not entirely excluded. No acute pulmonary con solidation. No pneumothorax or pleural effusion. The central airways are clear. AORTA AND GREAT VESSELS: No aneurysm. Contrast bolus not optimized for the aorta. HEART: No pericardial effusion. No significant coronary artery calcifications. PULMONARY ARTERIES: No emboli visualized in the main pulmonary arteries or the segmental branches. HILAR AND MEDIASTINAL STRUCTURES: No identified masses or abnormal nodes. HARDWARE: None in the chest. UPPER ABDOMEN: No significant findings. Limited exam. THYROID AND OTHER SOFT TISSUES: No masses. No adenopathy. BONES: Mild compression deformity of one of the upper lumbar vertebra, maybe on a remote basis. 3D MIPS: Confirm above findings. OTHER: No other significant finding. IMPRESSION: 1. No evidence for acute pulmonary emboli. 2. Bibasilar scar or atelectasis, more so on the right. A focal area of pleural thickening in the r ight lower lobe, best noted on coronal image 58, series 601. This finding may be related to inflamma tory changes, with other etiologies not entirely excluded. A follow-up noncontrast CT chest examinat ion is suggested in three months. COMMENT: Quality ID # [id number]: Final reports with documentation of one or more dose reduction techniques (e.g., Automated exposure control, adjustment of the mA and/or kV according to patient size, use of iterative reconstruction technique) TECHNICAL DOCUMENTATION: JOB ID: [id number] [employer]- All Rights Reserved Reading location - IP/workstation name: [email or web address]
[2018-10-24] MEDS ORDERED: PANTOPRAZOLE SODIUM 40 MG VIAL IV ONE (11:04)
--- NOTE | 2018-10-24 13:13 | PDOC H&P ---
History of Present Illness Admission Date/PCP: 10/24/18 Patient complains of: chest pain History of Present Illness: VALENTINA GUPTA is a 43 year old female presents to the ER with a complaint of fatigue and chest pain. The chest pain started 1-2 weeks ago when she was coughing and treated for a URI. she was placed on naprosyn which helped the chest pain initially. During this entire time. She has been feeling very weak and tired she states she has been sleeping more than usual. The chest pain would return to couple of days ago. She also states that she has been taking ibuprofen on a regular basis for a long period of time which she takes for her fibromyalgia. She has intermittently been on Protonix. She states that she takes it whenever she takes her Savella as that causes a lot of nausea and abdominal discomfort. 43-year-old female presents to the ER complaining of sharp chest pain when she breathes. Patient stated to be going on for 2 weeks. It began when she develo ped a sore throat cough muscle aches. She is coughing up green yellow sputum. The patient went to [place] and got prescription for antibiotics. Stated she has gotten better from the sore throat cough and congestion portion of this however she has had sharp chest pain ever since she describes it on the left side of her chest and goes to her back and hurts when she moves it hurts when she takes a deep breath she describes it as and rates it as severe and is sharp. It is worse with movement and taking a deep breath. Denies calf pain or leg swelling. Has no history of DVT or PE in the past. Past Medical History Cardiac Medical History: Reports: Hyperlipidema Pulmonary Medical History: Reports: Asthma Endocrine Medical History: Reports: None Malignancy Medical History: Reports: None GI Medical History: Reports: Gastroesophageal Reflux Disease Musculoskeltal Medical History: Reports: Arthritis, Fibromyalgia Hematology: Reports: None Infectious Medical History: Reports: None Past Surgical History Past Surgical History: Reports: Orthopedic Surgery - R shoulder rotator cuff repair; R knee torn meniscus; R foot bunionectomy, Social History Smoking Status: Smoker,Current Status Unk Family History Family History: Arthritis, Hypertension Parental Family History Reviewed: Yes Children Family History Reviewed: Yes Sibling(s) Family History Reviewed.: Yes Medication/Allergy Allergies/Adverse Reactions: Penicillins Allergy (Verified 10/24/18 08:18) Physical Exam Vital Signs: Temp Pulse Resp BP Pulse Ox 99.1 F 84 16 102/71 100 10/24/18 06:39 10/24/18 06:39 10/24/18 11:00 10/24/18 10:00 10/24/18 11:00 Intake & Output 10/23/18 10/24/18 10/25/18 06:59 06:59 06:59 Weight 74.5 kg General appearance: PRESENT: no acute distress, cooperative Eye exam: PRESENT: EOMI, PERRLA. ABSENT: scleral icterus Mouth exam: PRESENT: moist, neck supple Neck exam: PRESENT: full ROM. ABSENT: JVD, thyromegaly, tracheal deviation Respiratory exam: PRESENT: clear to auscultation nathaly, unlabored. ABSENT: accessory muscle use Cardiovascular exam: PRESENT: RRR. ABSENT: diastolic murmur, gallop, rubs, systolic murmur GI/Abdominal exam: PRESENT: normal bowel sounds, soft, tenderness - epigastric Rectal exam: PRESENT: black stool, heme (+) stool Extremities exam: ABSENT: calf tenderness Neurological exam: PRESENT: alert, oriented to person, oriented to place, oriented to time, oriented to situation Psychiatric exam: ABSENT: agitated, anxious Skin exam: PRESENT: dry, normal color, warm Results Laboratory Results: 10/24/18 07:45 10/24/18 07:45 10/24/18 10/24/18 10/24/18 07:45 07:45 11:19 WBC 8.5 RBC 2.59 L Hgb 8.2 L Hct 24.6 L MCV 95 MCH 31.9 MCHC 33.5 RDW 14.9 H Plt Count 428 Seg Neutrophils % 55.4 Lymphocytes % 37.5 Monocytes % 6.2 Eosinophils % 0.6 Basophils % 0.3 Absolute Neutrophils 4.7 Absolute Lymphocytes 3.2 Absolute Monocytes 0.5 Absolute Eosinophils 0.1 Absolute Basophils 0.0 Sodium 140.9 Potassium 4.7 Chloride 104 Carbon Dioxide 29 Anion Gap 8 BUN 23 H Creatinine 1.02 Est GFR ( Amer) > 60 Est GFR (Non-Af Amer) 59 L Glucose 92 Calcium 9.5 Blood Type A POSITIVE Antibody Screen NEGATIVE 10/24/18 07:45 Troponin I < 0.012 Impressions: Chest/Abdomen CTA 03/06/19 07:26 IMPRESSION: 1. No evidence for acute pulmonary emboli. 2. Bibasilar scar or atelectasis, more so on the right. A focal area of pleural thickening in the right lower lobe, best noted on coronal image 58, series 601. This finding may be related to inflammatory changes, with other etiologies not entirely excluded. A follow-up noncontrast CT chest examination is suggested in three months. Assessment & Plan - Diagnosis (1) GI bleed Qualifiers: GI bleed type/associated pathology: unspecified peptic ulcer Is this a current diagnosis for this admission?: Yes Plan: will refer patient to observation. monitor hemoglobin. start on PPI BID. will need EGD which can be done as an outpatient. patient is a [employer] and has stated she will refuse transfusion no matter what her hemoglobin drops too. Stop NSAIDs. Will give 2 doses of venofer and start vitamin C 500 mg daily (2) Fibromyalgia Is this a current diagnosis for this admission?: Yes Plan: will continue home medications as needed (3) Pleuritic chest pain Is this a current diagnosis for this admission?: Yes Plan: will just monitor for now. - Time Time Spent: 50 to 70 Minutes Medications reviewed and adjusted accordingly: Yes Anticipated discharge: Home
[2018-10-24] MEDS ORDERED: ASCORBIC ACID 500 MG TABLET PO ONE (15:00)
[2018-10-24] MEDS: IRON SUCROSE COMPLEX INJ/PF 100 MG/5 ML SDV IV SCH (15:09)
[2018-10-24] MEDS: ACETAMINOPHEN 325 MG TABLET PO PRN (15:20)
[2018-10-24] MEDS: LANSOPRAZOLE 30 MG TAB.RAP.DR PO SCH (19:07)
--- NOTE | 2018-10-24 19:16 | EKG REPORT ---
SEVERITY:- NORMAL ECG - SINUS RHYTHM : Confirmed by: Giselle Galvez MD 24-Oct-2018 19:14:30
[2018-10-24] MEDS: POTASSI CL 20 MEQ/D5-1/2NS 1L 1000 ML IV PRN (23:29)
[2018-10-25] MEDS: ACETAMINOPHEN 325 MG TABLET PO PRN ×3 (01:58→19:23)
[2018-10-25 07:27] LABS: HEMATOCRIT 27.2 % (36.0-47.0); HEMOGLOBIN 8.9 g/dL (12.0-15.5); MEAN CORPUSCULAR HEMOGLOBIN 30.9 pg (27.0-33.4); MEAN CORPUSCULAR HGB CONC 32.7 g/dL (32.0-36.0); MEAN CORPUSCULAR VOLUME 94 fl (80-97); PLATELET COUNT 447 10^3/uL (150-450); RED BLOOD COUNT 2.88 10^6/uL (3.72-5.28); RED CELL DISTRIBUTION WIDTH 15.4 % (11.5-14.0); WHITE BLOOD COUNT 7.6 10^3/uL (4.0-10.5)
[2018-10-25] MEDS: POTASSI CL 20 MEQ/D5-1/2NS 1L 1000 ML IV PRN (07:43)
[2018-10-25] MEDS: LANSOPRAZOLE 30 MG TAB.RAP.DR PO SCH ×2 (10:19→18:43)
[2018-10-25] MEDS: IRON SUCROSE COMPLEX INJ/PF 100 MG/5 ML SDV IV SCH (10:28)
[2018-10-25] MEDS ORDERED: ALBUTEROL SULFATE HFA (90 MCG/PUFF) 200 PUFF/8.5 GM MDI IH PRN (12:03)
[2018-10-25] MEDS ORDERED: (PENDING PHARMACY ID) (Valacyclovir Hcl [Valtrex] 1,000 MG) PO PRN (12:03)
[2018-10-25] MEDS ORDERED: VALACYCLOVIR HCL 500 MG TABLET PO PRN (12:10)
[2018-10-25] MEDS: OXYCODONE HCL IR 5 MG TABLET PO PRN (12:37)
[2018-10-25] MEDS: NORMAL SALINE 1000 ML 1,000 ML IV PRN (15:18)
[2018-10-25] MEDS: GABAPENTIN 400 MG CAPSULE PO SCH ×2 (15:25→21:25)
[2018-10-25] MEDS: HYDROXYZINE PAMOATE 50 MG CAPSULE PO SCH ×3 (15:26→21:25)
--- NOTE | 2018-10-25 16:30 | PDOC CONSULTATION ---
History of Present Illness Admission Date/PCP: 10/24/18 18:57 Patient complains of: Generalized weakness. History of Present Illness: VALENTINA GUPTA is a 43 year old female currently in the hospital for respiratory tract infection and generalized weakness, noted with anemia of unknown etiology. Patient denies any blood per rectum. She notes dark stools but not really melena. She has had no hematemesis. She has occasional lower abdominal pain but no epigastric abdominal pain. She has never had a endoscopic procedure. Patient takes ibuprofen daily for her fibromyalgia. She denies any alcohol abuse. No known history of cirrhosis. Past Medical History Cardiac Medical History: Reports: Hyperlipidema Pulmonary Medical History: Reports: Asthma Endocrine Medical History: Reports: None Malignancy Medical History: Reports: None GI Medical History: Reports: Gastroesophageal Reflux Disease Musculoskeltal Medical History: Reports: Arthritis, Fibromyalgia Hematology: Reports: None Infectious Medical History: Reports: None Past Surgical History Past Surgical History: Reports: Orthopedic Surgery - R shoulder rotator cuff repair; R knee torn meniscus; R foot bunionectomy, Social History Smoking Status: Smoker,Current Status Unk Frequency of Alcohol Use: None Hx Recreational Drug Use: No Hx Prescription Drug Abuse: Yes - Patient on chronic prescription pain meds but no known history of abuse - Advance Directive Resuscitation Status: Full Code Family History Family History: Arthritis, Hypertension Parental Family History Reviewed: Yes Children Family History Reviewed: Yes Sibling(s) Family History Reviewed.: Yes Medication/Allergy Home Medications: Albuterol Sulfate [Proair HFA Inhalation Aerosol 8.5 gm MDI] 1 puff IH Q4HP PRN 10/24/18 Fentanyl [Duragesic 12 Mcg/Hr Transdermal Patch] 1 patch TD Q3D 10/24/18 Gabapentin [Neurontin] 800 mg PO Q8 10/24/18 Hydroxyzine Pamoate [Vistaril 50 mg Capsule] 50 mg PO QID 10/24/18 Ibuprofen [Motrin 800 mg Tablet] 800 mg PO Q8HP PRN 10/24/18 Milnacipran HCl [Savella] 50 mg PO BID 10/24/18 Oxycodone HCl [Oxy-Ir 5 mg Tablet] 5 mg PO BIDP PRN 10/24/18 Pentosan Polysulfate Sodium [Elmiron 100 mg Capsule] 100 mg PO DAILY 10/24/18 Simvastatin [Zocor 40 mg Tablet] 40 mg PO QPM 10/24/18 Tizanidine HCl [Zanaflex 4 mg Tablet] 4 mg PO BID 10/24/18 Trazodone HCl [Desyrel] 100 mg PO QPM 10/24/18 Valacyclovir HCl [Valtrex] 1,000 mg PO DAILYP PRN 10/24/18 Allergies/Adverse Reactions: Penicillins Allergy (Verified 10/24/18 08:18) Physical Exam Vital Signs: Temp Pulse Resp BP Pulse Ox 98.2 F 66 16 99/67 L 99 10/25/18 11:24 10/25/18 11:24 10/25/18 11:24 10/25/18 11:24 10/25/18 11:24 Intake & Output 10/24/18 10/25/18 10/26/18 06:59 06:59 06:59 Intake Total 1934 Balance 1934 Weight 74.5 kg 73.5 kg General appearance: PRESENT: no acute distress, cooperative Eye exam: PRESENT: conjunctiva pink Respiratory exam: PRESENT: clear to auscultation nathaly Cardiovascular exam: PRESENT: RRR GI/Abdominal exam: PRESENT: other - Soft, nondistended, nontender to palpation, no hepatosplenomegaly. Neurological exam: PRESENT: alert, awake Psychiatric exam: PRESENT: appropriate affect Skin exam: PRESENT: warm Results Laboratory Results: 10/25/18 06:45 10/24/18 07:45 10/25/18 06:45 WBC 7.6 RBC 2.88 L Hgb 8.9 L Hct 27.2 L MCV 94 MCH 30.9 MCHC 32.7 RDW 15.4 H Plt Count 447 10/24/18 07:45 Troponin I < 0.012 Impressions: Chest/Abdomen CTA 10/24/18 07:26 IMPRESSION: 1. No evidence for acute pulmonary emboli. 2. Bibasilar scar or atelectasis, more so on the right. A focal area of pleural thickening in the right lower lobe, best noted on coronal image 58, series 601. This finding may be related to inflammatory changes, with other etiologies not entirely excluded. A follow-up noncontrast CT chest examination is suggested in three months. Assessment & Plan - Diagnosis (1) Anemia Qualifiers: Iron deficiency anemia type: chronic blood loss Is this a current diagnosis for this admission?: Yes Plan: Anemia with heme positive stool in patient with frequent NSAID use. We will plan EGD and colonoscopy. Patient does suffer from chronic constipation and may need a couple of days to clean her out. We will have her drink a gallon of GoLYTELY today and see if we have made progress. I have discussed with the patient the risk and benefits of the procedure including risk of colon injury and bleeding. Patient understands and agrees to proceed. Clear liquids today n.p.o. postmidnight for the procedure tomorrow.
--- NOTE | 2018-10-25 17:28 | PDOC PROGRESS REPORT ---
Subjective Progress Note for:: 10/25/18 Subjective:: 43 year old female presents to the ER with a complaint of fatigue and chest pain. The chest pain started 1-2 weeks ago when she was coughing and treated for a URI. she was placed on naprosyn which helped the chest pain initially. During this entire time. She has been feeling very weak and tired she states she has been sleeping more than usual. The chest pain would return to couple of days ago. She also states that she has been taking ibuprofen on a regular basis for a long period of time which she takes for her fibromyalgia. She has intermittently been on Protonix. She states that she takes it whenever she takes her Savella as that causes a lot of nausea and abdominal discomfort. 43-year-old female presents to the ER complaining of sharp chest pain when she breathes. Patient stated to be going on for 2 weeks. It began when she developed a sore throat cough muscle aches. She is coughing up green yellow sputum. The patient went to [place] and got prescription for antibiotics. Stated she has gotten better from the sore throat cough and congestion portion of this however she has had sharp chest pain ever since she describes it on the left side of her chest and goes to her back and hurts when she moves it hurts when she takes a deep breath she describes it as and rates it as severe and is sharp. It is worse with movement and taking a deep breath. Denies calf pain or leg swelling. Has no history of DVT or PE in the past. 10/25/2018-patient hemoglobin is improved to 8.9. Surgical consult was done Dr. quiroz planning to do EGD colonoscopy. She is going to be on clear liquids today. She is going to be n.p.o. from midnight. No acute events in the last 24 hours. Reason For Visit: GI BLEED Physical Exam Vital Signs: Temp Pulse Resp BP Pulse Ox 98.2 F 66 16 99/67 L 99 10/25/18 11:24 10/25/18 11:24 10/25/18 11:24 10/25/18 11:24 10/25/18 11:24 Intake & Output 10/24/18 10/25/18 10/26/18 06:59 06:59 06:59 Intake Total 1934 Balance 1934 Weight 74.5 kg 73.5 kg General appearance: PRESENT: no acute distress Head exam: PRESENT: atraumatic Eye exam: PRESENT: PERRLA Neck exam: ABSENT: carotid bruit, JVD, lymphadenopathy, thyromegaly Respiratory exam: PRESENT: clear to auscultation nathaly. ABSENT: rales, rhonchi, wheezes Cardiovascular exam: PRESENT: RRR. ABSENT: diastolic murmur, rubs, systolic murmur GI/Abdominal exam: PRESENT: normal bowel sounds, soft. ABSENT: distended, guarding, mass, organolmegaly, rebound, tenderness Extremities exam: PRESENT: full ROM. ABSENT: calf tenderness, clubbing, pedal edema Neurological exam: PRESENT: alert, awake, oriented to person, oriented to place, oriented to time, oriented to situation, CN II-XII grossly intact. ABSENT: motor sensory deficit Psychiatric exam: PRESENT: appropriate affect, normal mood. ABSENT: homicidal ideation, suicidal ideation Results Laboratory Results: 10/25/18 06:45 10/24/18 07:45 10/25/18 06:45 WBC 7.6 RBC 2.88 L Hgb 8.9 L Hct 27.2 L MCV 94 MCH 30.9 MCHC 32.7 RDW 15.4 H Plt Count 447 10/24/18 07:45 Troponin I < 0.012 Impressions: Chest/Abdomen CTA 10/24/18 07:26 IMPRESSION: 1. No evidence for acute pulmonary emboli. 2. Bibasilar scar or atelectasis, more so on the right. A focal area of pleural thickening in the right lower lobe, best noted on coronal image 58, series 601. This finding may be related to inflammatory changes, with other etiologies not entirely excluded. A follow-up noncontrast CT chest examination is suggested in three months. Assessment & Plan - Diagnosis (1) GI bleed Qualifiers: GI bleed type/associated pathology: unspecified peptic ulcer Qualified Code(s): K27.4 - Chronic or unspecified peptic ulcer, site unspecified, with hemorrhage Is this a current diagnosis for this admission?: Yes Plan: will refer patient to observation. monitor hemoglobin. start on PPI BID. will need EGD which can be done as an outpatient. patient is a [employer] and has stated she will refuse transfusion no matter what her hemoglobin drops too. Stop NSAIDs. Will give 2 doses of venofer and start vitamin C 500 mg daily 10/25/2018-patient admitted with low hemoglobin 8.2 stool guaiac was positive. It was improved to 8.9 today. Patient is a Jehovah witness. GI bleed most likely secondary to chronic use of antipsychotics. Surgical consult was done plan is to arrange for EGD and colonoscopy. (2) Fibromyalgia Is this a current diagnosis for this admission?: No Plan: 10/25/2018-patient has chronic history of fibromyalgia we going to resume her home medications during the hospital stay. (3) Pleuritic chest pain Is this a current diagnosis for this admission?: Yes Plan: 10/25/2018-patient complained of pleuritic chest pain at the time of admission no complaints of chest pain today. - Time Time Spent with patient: 15-24 minutes Medications reviewed and adjusted accordingly: Yes
[2018-10-25] MEDS ORDERED: PEG 3350/NA SULF,BICARB,CL/KCL 4000 ML PO ONE (17:30)
[2018-10-25] MEDS ORDERED: (PENDING PHARMACY ID) (Milnacipran Hcl [Savella] 50 MG) PO SCH (18:00)
[2018-10-25] MEDS ORDERED: (PENDING PHARMACY ID) (Trazodone Hcl [Desyrel] 100 MG) PO SCH (18:00)
[2018-10-25] MEDS: SIMVASTATIN 40 MG TABLET PO SCH (18:43)
[2018-10-25] MEDS: TIZANIDINE HCL 4 MG TABLET PO SCH (18:43)
[2018-10-25] MEDS: TRAZODONE HCL 50 MG TABLET PO SCH (22:19)
[2018-10-26] MEDS: GABAPENTIN 400 MG CAPSULE PO SCH ×3 (05:18→23:10)
[2018-10-26] MEDS ORDERED: GLUCAGON,HUMAN RECOMB 1 MG INJ SUBCUT PRN (05:44)
[2018-10-26] MEDS ORDERED: DEXTROSE 40% GEL 15 GM TUBE PO PRN ×2 (05:44)
[2018-10-26] MEDS ORDERED: DEXTROSE 50%-WATER 25 GM/50 ML DISP.SYRIN IV PRN ×2 (05:44)
[2018-10-26 08:27] LABS: ABSOLUTE LYMPHOCYTES (AUTO) 2.7 10^3/uL (0.5-4.7); ABSOLUTE MONOCYTES (AUTO) 0.4 10^3/uL (0.1-1.4); ABSOLUTE NEUT (AUTO) 3.3 10^3/uL (1.7-8.2); BASOPHILS % (AUTO) 0.5 % (0-2); EOSINOPHILS % (AUTO) 0.5 % (0-6); HEMATOCRIT 28.9 % (36.0-47.0); HEMOGLOBIN 9.6 g/dL (12.0-15.5); LYMPHOCYTES % (AUTO) 42.1 % (13-45); MEAN CORPUSCULAR HEMOGLOBIN 31.2 pg (27.0-33.4); MEAN CORPUSCULAR HGB CONC 33.3 g/dL (32.0-36.0); MEAN CORPUSCULAR VOLUME 94 fl (80-97); MONOCYTES % (AUTO) 5.6 % (3-13); PLATELET COUNT 431 10^3/uL (150-450); RED BLOOD COUNT 3.09 10^6/uL (3.72-5.28); RED CELL DISTRIBUTION WIDTH 15.2 % (11.5-14.0); SEGMENTED NEUTROPHILS % (AUTO) 51.3 % (42-78); TOTAL CELLS COUNTED % (AUTO) 100 %; WHITE BLOOD COUNT 6.5 10^3/uL (4.0-10.5)
[2018-10-26 09:23] LABS: ALANINE AMINOTRANSFERASE 12 U/L (9-52); ALBUMIN 4.4 g/dL (3.5-5.0); ALKALINE PHOSPHATASE 102 U/L (38-126); ANION GAP 11 (5-19); ASPARTATE AMINO TRANSFERASE 19 U/L (14-36); BILIRUBIN,DIRECT 0.3 mg/dL (0.0-0.4); BILIRUBIN,TOTAL 0.4 mg/dL (0.2-1.3); BLOOD UREA NITROGEN 7 mg/dL (7-20); CARBON DIOXIDE 26 mmol/L (22-30); CHLORIDE 105 mmol/L (98-107); GLUCOSE 84 mg/dL (75-110); POTASSIUM 4.2 mmol/L (3.6-5.0); TOTAL PROTEIN 7.1 g/dL (6.3-8.2)
[2018-10-26] MEDS: LANSOPRAZOLE 30 MG TAB.RAP.DR PO SCH ×2 (09:53→17:25)
[2018-10-26] MEDS: HYDROXYZINE PAMOATE 50 MG CAPSULE PO SCH ×4 (09:53→23:24)
[2018-10-26] MEDS: TIZANIDINE HCL 4 MG TABLET PO SCH ×2 (09:53→17:27)
[2018-10-26] MEDS ORDERED: NORMAL SALINE 1000 ML 2,000 ML IV ONE (09:55)
--- NOTE | 2018-10-26 09:56 | PDOC PROGRESS REPORT ---
Subjective Progress Note for:: 10/26/18 Subjective:: no c/o, reports clear stools after prep Reason For Visit: GI BLEED Physical Exam Vital Signs: Temp Pulse Resp BP Pulse Ox 99.4 F 81 15 93/49 L 97 10/26/18 08:43 10/26/18 08:43 10/26/18 08:43 10/26/18 08:43 10/26/18 08:43 Intake & Output 10/25/18 10/26/18 10/27/18 06:59 06:59 06:59 Intake Total 2935 Balance 2935 Weight 73.5 kg 74.5 kg General appearance: PRESENT: no acute distress Respiratory exam: PRESENT: clear to auscultation nathaly Cardiovascular exam: PRESENT: RRR GI/Abdominal exam: PRESENT: soft Results Laboratory Results: 10/26/18 07:42 10/26/18 07:42 10/26/18 10/26/18 07:42 07:42 WBC 6.5 RBC 3.09 L Hgb 9.6 L Hct 28.9 L MCV 94 MCH 31.2 MCHC 33.3 RDW 15.2 H Plt Count 431 Seg Neutrophils % 51.3 Lymphocytes % 42.1 Monocytes % 5.6 Eosinophils % 0.5 Basophils % 0.5 Absolute Neutrophils 3.3 Absolute Lymphocytes 2.7 Absolute Monocytes 0.4 Absolute Eosinophils 0.0 Absolute Basophils 0.0 Sodium 142.0 Potassium 4.2 Chloride 105 Carbon Dioxide 26 Anion Gap 11 BUN 7 Creatinine 0.86 Est GFR ( Amer) > 60 Est GFR (Non-Af Amer) > 60 Glucose 84 Calcium 10.0 Magnesium 2.5 H Total Bilirubin 0.4 AST 19 ALT 12 Alkaline Phosphatase 102 Total Protein 7.1 Albumin 4.4 10/24/18 07:45 Troponin I < 0.012 Impressions: Chest/Abdomen CTA 10/24/18 07:26 IMPRESSION: 1. No evidence for acute pulmonary emboli. 2. Bibasilar scar or atelectasis, more so on the right. A focal area of pleural thickening in the right lower lobe, best noted on coronal image 58, series 601. This finding may be related to inflammatory changes, with other etiologies not entirely excluded. A follow-up noncontrast CT chest examination is suggested in three months. Assessment & Plan - Diagnosis (1) Anemia Qualifiers: Iron deficiency anemia type: chronic blood loss Is this a current diagnosis for this admission?: Yes - Plan Summary Plan Summary: A/ Anemia, mild hx BRBPR P/ EGD colonoscopy today Procedure, risks, benefits, complicatos explained to the patient, sheunderst ands and decides to proceed NPO NS 2 L bolus, then 150 mL/hr
[2018-10-26] MEDS ORDERED: FENTANYL 12 MCG/HR PATCH.TD72 TD SCH (10:00)
[2018-10-26] MEDS ORDERED: PENTOSAN POLYSULFATE SODIUM 100 MG PO SCH (10:00)
[2018-10-26] MEDS ORDERED: DIPHENHYDRAMINE HCL 50 MG/ML VIAL ONE (13:20)
[2018-10-26] MEDS ORDERED: FLUMAZENIL INJ 0.5 MG/5 ML VIAL ONE (13:21)
[2018-10-26] MEDS ORDERED: EPINEPHRINE INJ 1 MG/10 ML DISP.SYRIN ONE (13:21)
[2018-10-26] MEDS ORDERED: GLUCAGON,HUMAN RECOMB 1 MG INJ ONE (13:21)
[2018-10-26] MEDS ORDERED: ONDANSETRON HCL INJ/PF 4 MG/2 ML SDV ONE (13:21)
[2018-10-26] MEDS ORDERED: NALOXONE HCL INJ/PF 0.4 MG/1 ML SDV ONE (13:21)
[2018-10-26] MEDS: MIDAZOLAM 2 MG/2 ML INJ ONE ×5 (14:18→14:40)
[2018-10-26] MEDS: FENTANYL CITRATE INJ/PF 100 MCG/2 ML AMPUL ONE ×5 (14:20→14:45)
--- NOTE | 2018-10-26 14:52 | PDOC PROGRESS REPORT ---
Subjective Progress Note for:: 10/26/18 Subjective:: 43 year old female presents to the ER with a complaint of fatigue and chest pain. The chest pain started 1-2 weeks ago when she was coughing and treated for a URI. she was placed on naprosyn which helped the chest pain initially. During this entire time. She has been feeling very weak and tired she states she has been sleeping more than usual. The chest pain would return to couple of days ago. She also states that she has been taking ibuprofen on a regular basis for a long period of time which she takes for her fibromyalgia. She has intermittently been on Protonix. She states that she takes it whenever she takes her Savella as that causes a lot of nausea and abdominal discomfort. 43-year-old female presents to the ER complaining of sharp chest pain when she breathes. Patient stated to be going on for 2 weeks. It began when she developed a sore throat cough muscle aches. She is coughing up green yellow sputum. The patient went to [place] and got prescription for antibiotics. Stated she has gotten better from the sore throat cough and congestion portion of this however she has had sharp chest pain ever since she describes it on the left side of her chest and goes to her back and hurts when she moves it hurts when she takes a deep breath she describes it as and rates it as severe and is sharp. It is worse with movement and taking a deep breath. Denies calf pain or leg swelling. Has no history of DVT or PE in the past. 10/25/2018-patient hemoglobin is improved to 8.9. Surgical consult was done Dr. quiroz planning to do EGD colonoscopy. She is going to be on clear liquids today. She is going to be n.p.o. from midnight. No acute events in the last 24 hours. 10/26/2018-patient hemoglobin is 9.6 today. Improved from 8.9 today. Patient is going for EGD and colonoscopy today. is bedside. No concerns from the family. Patient is comfortably in the bed. no Events in the last 24 hours. Reason For Visit: GI BLEED Physical Exam Vital Signs: Temp Pulse Resp BP Pulse Ox 98.8 F 81 15 96/51 L 98 10/26/18 13:00 10/26/18 13:00 10/26/18 13:00 10/26/18 13:00 10/26/18 13:00 Intake & Output 10/25/18 10/26/18 10/27/18 06:59 06:59 06:59 Intake Total 2935 Balance 2935 Weight 73.5 kg 74.5 kg General appearance: PRESENT: no acute distress Head exam: PRESENT: atraumatic Eye exam: PRESENT: PERRLA Mouth exam: PRESENT: moist, tongue midline Neck exam: ABSENT: carotid bruit, JVD, lymphadenopathy, thyromegaly Respiratory exam: PRESENT: clear to auscultation nathaly. ABSENT: rales, rhonchi, wheezes Cardiovascular exam: PRESENT: RRR. ABSENT: diastolic murmur, rubs, systolic murmur GI/Abdominal exam: PRESENT: normal bowel sounds, soft. ABSENT: distended, guarding, mass, organolmegaly, rebound, tenderness Extremities exam: PRESENT: full ROM. ABSENT: calf tenderness, clubbing, pedal edema Psychiatric exam: PRESENT: appropriate affect, normal mood. ABSENT: homicidal ideation, suicidal ideation Results Laboratory Results: 10/26/18 07:42 10/26/18 07:42 10/26/18 10/26/18 07:42 07:42 WBC 6.5 RBC 3.09 L Hgb 9.6 L Hct 28.9 L MCV 94 MCH 31.2 MCHC 33.3 RDW 15.2 H Plt Count 431 Seg Neutrophils % 51.3 Lymphocytes % 42.1 Monocytes % 5.6 Eosinophils % 0.5 Basophils % 0.5 Absolute Neutrophils 3.3 Absolute Lymphocytes 2.7 Absolute Monocytes 0.4 Absolute Eosinophils 0.0 Absolute Basophils 0.0 Sodium 142.0 Potassium 4.2 Chloride 105 Carbon Dioxide 26 Anion Gap 11 BUN 7 Creatinine 0.86 Est GFR ( Amer) > 60 Est GFR (Non-Af Amer) > 60 Glucose 84 Calcium 10.0 Magnesium 2.5 H Total Bilirubin 0.4 AST 19 ALT 12 Alkaline Phosphatase 102 Total Protein 7.1 Albumin 4.4 10/24/18 07:45 Troponin I < 0.012 Impressions: Chest/Abdomen CTA 10/24/18 07:26 IMPRESSION: 1. No evidence for acute pulmonary emboli. 2. Bibasilar scar or atelectasis, more so on the right. A focal area of pleural thickening in the right lower lobe, best noted on coronal image 58, series 601. This finding may be related to inflammatory changes, with other etiologies not entirely excluded. A follow-up noncontrast CT chest examination is suggested in three months. Assessment & Plan - Diagnosis (1) GI bleed Qualifiers: GI bleed type/associated pathology: unspecified peptic ulcer Qualified Code(s): K27.4 - Chronic or unspecified peptic ulcer, site unspecified, with hemorrhage Is this a current diagnosis for this admission?: Yes Plan: will refer patient to observation. monitor hemoglobin. start on PPI BID. will need EGD which can be done as an outpatient. patient is a [employer] and has stated she will refuse transfusion no matter what her hemoglobin drops too. Stop NSAIDs. Will give 2 doses of venofer and start vitamin C 500 mg daily 10/25/2018-patient admitted with low hemoglobin 8.2 stool guaiac was positive. It was improved to 8.9 today. Patient is a Jehovah witness. GI bleed most likely secondary to chronic use of antipsychotics. Surgical consult was done plan is to arrange for EGD and colonoscopy. 10/26/2018-patient hemoglobin today is 9.6. She is getting GoLYTELY and she is having the clear stools and is going for EGD and colonoscopy today. (2) Fibromyalgia Is this a current diagnosis for this admission?: No Plan: 10/25/2018-patient has chronic history of fibromyalgia we going to resume her home medications during the hospital stay. 2018-patient has chronic fibromyalgia she is on multiple medications at home dose of medications were resumed during his hospital stay. (3) Pleuritic chest pain Is this a current diagnosis for this admission?: Yes - Time Time Spent with patient: 15-24 minutes Medications reviewed and adjusted accordingly: Yes Anticipated discharge: Home
--- NOTE | 2018-10-26 15:13 | Operative Report ---
Nonrecallable Operative Report DATE OF SURGERY: 10/26/18 PREOPERATIVE DIAGNOSIS: weight loss. constipation. mild anemia POSTOPERATIVE DIAGNOSIS: same. mild antritis. negative colonoscopy to cecum OPERATION: EGD with biopsy. colonoscopy to cecum SURGEON: VALENTÍN TORRES ANESTHESIA: Moderate Sedation - provided by Dr. Torres 3 mg IVP Versed; 125 mcg IVP Fentanyl TISSUE REMOVED OR ALTERED: bx antrum COMPLICATIONS: none ESTIMATED BLOOD LOSS: n/a INTRAOPERATIVE FINDINGS: mild antritis; colonoscopy to cecum PROCEDURE: dictation
--- NOTE | 2018-10-26 15:33 | OPERATIVE REPORT E ---
Operative Report NAME: VALENTINA GUPTA : 1975 AGE: 43Y DATE OF SURGERY: 10/26/2018 ROOM: 431 PREOPERATIVE DIAGNOSIS: WEIGHT LOSS, CHRONIC CONSTIPATION. POSTOPERATIVE DIAGNOSIS: WEIGHT LOSS, CHRONIC CONSTIPATION. MILD ANTRITIS ON EGD. NEGATIVE COLONOSCOPY TO CECUM. OPERATION: 1. EGD WITH BIOPSY. 2. COLONOSCOPY TO THE CECUM. SURGEON: VALENTÍN TORRES M.D. BOTTOM MAN: None. ESTIMATED BLOOD LOSS: None. COMPLICATIONS: None. ANESTHESIA: IV sedation provided by Dr. Torres with 10 mg IV push of Versed, 125 mcg IV push of fentanyl. INDICATION/FINDINGS: This is a young 43-year-old female who presented to the emergency room complaining of weight loss and chronic constipation. The patient had initial CT scan of the abdomen and pelvis which was negative, and she was scheduled to undergo EGD and colonoscopy today following bowel prep. PROCEDURE: In the procedure room, the patient was placed in lateral decubitus position and IV sedation provided by Dr. Torres as above. The EGD was done by insertin the scopew via the mouth through the esophagus, stomach, and duodenum. The preparation was good, no masses, polyps, lesions, ulcers were noted, mild inflammation was noted in the antrum and biopsies were taken for pathology and H. Pilorii. The colonoscope was inserted through the rectum and the several segments of colon up to the cecum. Preparation was excellent. No masses, polyps, fissures, indentations, mucosal changes, or diverticula were noted. The instrument was then slowly withdrawn and again no lesions were identified. This was finally removed. The patient tolerated the procedure well and transferred to the recovery room in satisfactory condition. DICTATING PHYSICIAN: VALENTÍN TORRES M.D. [id number] PHY#: [id number] ID: [id number] JOB#: [id number] ACCT: [id number] cc:VALENTÍN TORRES M.D. > [facility]
[2018-10-26] MEDS: TRAZODONE HCL 50 MG TABLET PO SCH (17:24)
[2018-10-26] MEDS: SIMVASTATIN 40 MG TABLET PO SCH (17:25)
[2018-10-26] MEDS: NORMAL SALINE 1000 ML 1,000 ML IV PRN (21:10)
[2018-10-26] MEDS ORDERED: VALACYCLOVIR HCL 500 MG TABLET ONE (23:28)
[2018-10-26] MEDS ORDERED: NORMAL SALINE 1000 ML 1,000 ML IV ONE (23:30)
[2018-10-27] MEDS: GABAPENTIN 400 MG CAPSULE PO SCH (05:12)
[2018-10-27] MEDS: NORMAL SALINE 1000 ML 1,000 ML IV PRN ×2 (05:13→10:36)
[2018-10-27] MEDS: ACETAMINOPHEN 325 MG TABLET PO PRN (08:54)
[2018-10-27] MEDS ORDERED: VALACYCLOVIR HCL 500 MG TABLET PO SCH (10:00)
[2018-10-27] MEDS: HYDROXYZINE PAMOATE 50 MG CAPSULE PO SCH (10:35)
[2018-10-27] MEDS: LANSOPRAZOLE 30 MG TAB.RAP.DR PO SCH (10:35)
[2018-10-27] MEDS: TIZANIDINE HCL 4 MG TABLET PO SCH (10:35)
[2018-10-27] MEDS: OXYCODONE HCL IR 5 MG TABLET PO PRN (11:28)
[2018-10-27 12:50] VITALS: BP 97/48
--- NOTE | 2018-10-27 13:26 | PDOC DISCHARGE SUMMARY ---
General - Admit/Disc Date/PCP Admission Date/Primary Care Provider: 10/26/18 13:32 Discharge Date: 10/27/18 - Discharge Diagnosis (1) GI bleed Is this a current diagnosis for this admission?: Yes Summary: will refer patient to observation. monitor hemoglobin. start on PPI BID. will need EGD which can be done as an outpatient. patient is a [employer] and has stated she will refuse transfusion no matter what her hemoglobin drops too. Stop NSAIDs. Will give 2 doses of venofer and start vitamin C 500 mg daily 10/25/2018-patient admitted with low hemoglobin 8.2 stool guaiac was positive. It was improved to 8.9 today. Patient is a Jehovah witness. GI bleed most likely secondary to chronic use of antipsychotics. Surgical consult was done plan is to arrange for EGD and colonoscopy. 10/26/2018-patient hemoglobin today is 9.6. She is getting GoLYTELY and she is having the clear stools and is going for EGD and colonoscopy today. 10/27/2018-s/p EGD has mild antritis. pt is advised to not to take NSAIDS and celebrex.given script for feso4 and advised to follow up with PCP in 3-5 days. (2) Fibromyalgia Is this a current diagnosis for this admission?: No Summary: 10/25/2018-patient has chronic history of fibromyalgia we going to resume her home medications during the hospital stay. 2018-patient has chronic fibromyalgia she is on multiple medications at home dose of medications were resumed during his hospital stay. 10/27/2018-has h/o chronic fibromyalgia .. advised to resume home meds. (3) Pleuritic chest pain Is this a current diagnosis for this admission?: Yes Summary: 10/27/2018-no complaints of chest pain today. - Additional Information Resuscitation Status: Full Code Discharge Diet: Cardiac Discharge Activity: Activity As Tolerated Prescriptions: Ferrous Sulfate [Feosol 325 mg Tablet] 325 mg PO MEALS #90 tab Home Medications: Albuterol Sulfate [Proair HFA Inhalation Aerosol 8.5 gm MDI] 1 puff IH Q4HP PRN 10/24/18 Gabapentin [Neurontin] 800 mg PO Q8 10/24/18 Hydroxyzine Pamoate [Vistaril 50 mg Capsule] 50 mg PO QID 10/24/18 Ibuprofen [Motrin 800 mg Tablet] 800 mg PO Q8HP PRN 10/24/18 Milnacipran HCl [Savella] 50 mg PO BID 10/24/18 Pentosan Polysulfate Sodium [Elmiron 100 mg Capsule] 100 mg PO DAILY 10/24/18 Simvastatin [Zocor 40 mg Tablet] 40 mg PO QPM 10/24/18 Trazodone HCl [Desyrel] 100 mg PO QPM 10/24/18 Valacyclovir HCl [Valtrex] 1,000 mg PO DAILYP PRN 10/24/18 Ferrous Sulfate [Feosol 325 mg Tablet] 325 mg PO MEALS #90 tab 10/27/18 History of Present Illness History of Present Illness: VALENTINA GUPTA is a 43 year old female 43 year old female presents to the ER with a complaint of fatigue and chest pain. The chest pain started 1-2 weeks ago when she was coughing and treated for a URI. she was placed on naprosyn which helped the chest pain initially. During this entire time. She has been feeling very weak and tired she states she has been sleeping more than usual. The chest pain would return to couple of days ago. She also states that she has been taking ibuprofen on a regular basis for a long period of time which she takes for her fibromyalgia. She has intermittently been on Protonix. She states that she takes it whenever she takes her Savella as that causes a lot of nausea and abdominal discomfort. 43-year-old female presents to the ER complaining of sharp chest pain when she breathes. Patient stated to be going on for 2 weeks. It began when she developed a sore throat cough muscle aches. She is coughing up green yellow sputum. The patient went to [place] and got prescription for antibiotics. Stated she has gotten better from the sore throat cough and congestion portion of this however she has had sharp chest pain ever since she describes it on the left side of her chest and goes to her back and hurts when she moves it hurts when she takes a deep breath she describes it as and rates it as severe and is sharp. It is worse with movement and taking a deep breath. Denies calf pain or leg swelling. Has no history of DVT or PE in the past. Physical Exam Vital Signs: Temp Pulse Resp BP Pulse Ox 98.6 F 79 16 97/48 L 98 10/27/18 12:48 10/27/18 12:48 10/27/18 12:48 10/27/18 12:48 10/27/18 12:48 Intake & Output 10/26/18 10/27/18 10/28/18 06:59 06:59 07:59 Intake Total 2935 5150 1165 Balance 2935 5150 1165 Weight 74.5 kg 76.5 kg General appearance: PRESENT: no acute distress Head exam: PRESENT: atraumatic Eye exam: PRESENT: PERRLA Mouth exam: PRESENT: dry mucosa Neck exam: ABSENT: carotid bruit, JVD, lymphadenopathy, thyromegaly Respiratory exam: PRESENT: clear to auscultation nathaly. ABSENT: rales, rhonchi, wheezes Cardiovascular exam: PRESENT: RRR. ABSENT: diastolic murmur, rubs, systolic murmur GI/Abdominal exam: PRESENT: normal bowel sounds, soft. ABSENT: distended, guarding, mass, organolmegaly, rebound, tenderness Neurological exam: PRESENT: alert, awake, oriented to person, oriented to place, oriented to time, oriented to situation, CN II-XII grossly intact. ABSENT: motor sensory deficit Psychiatric exam: PRESENT: appropriate affect, normal mood. ABSENT: homicidal ideation, suicidal ideation Results Laboratory Results: 10/26/18 07:42 10/26/18 07:42 10/24/18 07:45 Troponin I < 0.012 Impressions: Chest/Abdomen CTA 10/24/18 07:26 IMPRESSION: 1. No evidence for acute pulmonary emboli. 2. Bibasilar scar or atelectasis, more so on the right. A focal area of pleural thickening in the right lower lobe, best noted on coronal image 58, series 601. This finding may be related to inflammatory changes, with other etiologies not entirely excluded. A follow-up noncontrast CT chest examination is suggested in three months. Qualifiers - * PATIENT BEING DISCHARGED WITH ANY OF THE FOLLOWING DIAGNOSIS: No VTE patient discharged on overlapping Therapy?: No
== END 2018-10-27 14:00 | disposition home or self-care (01) | DRG 379 ==
LOC: ER 06:27 → INTOOBSV 18:57 → EH 18:57 → 4S 20:50 → OBSVTOIN 10-26 13:32
PROVIDERS: ADMIT Internal Medicine; ATTEND Internal Medicine
PROC: 0DB68ZX Excision of Stomach, Via Natural or Artificial Opening Endoscopic, Diagnostic (ICD-10-PCS; principal; 2018-10-26 14:00)
PROC: 0DJD8ZZ Inspection of Lower Intestinal Tract, Via Natural or Artificial Opening Endoscopic (ICD-10-PCS; 2018-10-26 14:00)
DX: K92.1 Melena (principal); D50.0 Iron deficiency anemia secondary to blood loss (chronic); M79.7 Fibromyalgia; R07.81 Pleurodynia; Z53.1 Procedure and treatment not carried out because of patient's decision for reasons of belief and group pressure; K59.09 Other constipation; K29.60 Other gastritis without bleeding; Z79.1 Long term (current) use of non-steroidal anti-inflammatories (NSAID); Z79.899 Other long term (current) drug therapy; Z88.0 Allergy status to penicillin
CPT/HCPCS: 36415; 43239; 45378; 71275; 80048; 80053; 83735; 84484; 85025; 85027; 86850; 86900; 86901; 88305; 88342; 93005; 93010; 96374; 99285; G0378; J0171; J1200; J1610; J1756; J2250; J2310; J2405; J3010; J3480; J3490; J7030; S0164

== ENCOUNTER → 2019-02-12 | Outpatient (CLI) | payer MEDICARE, MEDICAID ==
[2019-02-12 15:23] LABS: ABSOLUTE BASOPHILS # (AUTO) 0.1 10^3/uL (0.0-0.2); ABSOLUTE EOSINOPHILS # (AUTO) 0.1 10^3/uL (0.0-0.6); ABSOLUTE LYMPHOCYTES (AUTO) 3.8 10^3/uL (0.5-4.7); ABSOLUTE MONOCYTES (AUTO) 0.5 10^3/uL (0.1-1.4); ABSOLUTE NEUT (AUTO) 2.8 10^3/uL (1.7-8.2); BASOPHILS % (AUTO) 0.9 % (0-2); EOSINOPHILS % (AUTO) 1.6 % (0-6); HEMATOCRIT 36.1 % (36.0-47.0); HEMOGLOBIN 12.1 g/dL (12.0-15.5); LYMPHOCYTES % (AUTO) 52.1 % (13-45); MEAN CORPUSCULAR HEMOGLOBIN 30.4 pg (27.0-33.4); MEAN CORPUSCULAR HGB CONC 33.6 g/dL (32.0-36.0); MEAN CORPUSCULAR VOLUME 91 fl (80-97); MONOCYTES % (AUTO) 6.6 % (3-13); PLATELET COUNT 237 10^3/uL (150-450); RED BLOOD COUNT 3.99 10^6/uL (3.72-5.28); RED CELL DISTRIBUTION WIDTH 14.6 % (11.5-14.0); SEGMENTED NEUTROPHILS % (AUTO) 38.8 % (42-78); TOTAL CELLS COUNTED % (AUTO) 100 %; WHITE BLOOD COUNT 7.3 10^3/uL (4.0-10.5)
[2019-02-12 15:26] LABS: INTERNATIONAL RATION (INR) 1.09; PROTHROMBIN TIME 14.1 SEC (11.4-15.4)
[2019-02-12 15:26] LABS: APPEARANCE,URINE SLIGHTLY-CLOUDY; BILIRUBIN,URINE NEGATIVE (NEGATIVE); COLOR,URINE YELLOW; GLUCOSE, URINE NEGATIVE (NEGATIVE); KETONES,URINE TRACE mg/dL (NEGATIVE); LEUKOCYTE ESTERASE,URINE NEGATIVE (NEGATIVE); NITRITE,URINE NEGATIVE (NEGATIVE); PROTEIN,URINE NEGATIVE (NEGATIVE); URINE SPECIFIC GRAVITY 1.025
[2019-02-12 15:27] LABS: PARTIAL THROMBOPLASTIN TIME 29.1 SEC (23.5-35.8)
== END ==
LOC: OD 13:56
PROVIDERS: ATTEND Student in an Organized Health Care Education/Training Program
DX: Z01.812 Encounter for preprocedural laboratory examination (principal); D68.9 Coagulation defect, unspecified
CPT/HCPCS: 36415; 81001; 85025; 85610; 85730

== ENCOUNTER 2019-03-14 05:40 | Day surgery (SDC) | payer MEDICARE, MEDICAID ==
--- NOTE | 2019-03-13 13:59 | RADIOLOGY REPORT (SQ) ---
EXAM DESCRIPTION: CHEST PA/LATERAL COMPLETED DATE/TIME: 03/13/2019 1:37 pm REASON FOR STUDY: PRE-OP COMPARISON: 05/17/2017 EXAM PARAMETERS: NUMBER OF VIEWS: two views TECHNIQUE: Digital Frontal and Lateral radiographic views of the chest acquired. RADIATION DOSE: NA LIMITATIONS: none FINDINGS: LUNGS AND PLEURA: No opacities, masses or pneumothorax. No pleural effusion. MEDIASTINUM AND HILAR STRUCTURES: No masses or contour abnormalities. HEART AND VASCULAR STRUCTURES: Heart normal size. No evidence for failure. BONES: No acute findings. Stable L1 anterior compression deformity. HARDWARE: Cervical fusion hardware. OTHER: No other significant finding. IMPRESSION: No evidence of acute cardiopulmonary process. TECHNICAL DOCUMENTATION: JOB ID: [id number] [employer]- All Rights Reserved Reading location - IP/workstation name: [email or web address]
[2019-03-13 14:25] LABS: APPEARANCE,URINE CLEAR; BILIRUBIN,URINE NEGATIVE (NEGATIVE); COLOR,URINE YELLOW; GLUCOSE, URINE NEGATIVE (NEGATIVE); KETONES,URINE NEGATIVE (NEGATIVE); LEUKOCYTE ESTERASE,URINE NEGATIVE (NEGATIVE); NITRITE,URINE NEGATIVE (NEGATIVE); PROTEIN,URINE NEGATIVE (NEGATIVE); URINE SPECIFIC GRAVITY 1.026; UROBILINOGEN,URINE NEGATIVE mg/dL (<2.0)
[2019-03-13 14:30] LABS: HEMATOCRIT 37.3 % (36.0-47.0); HEMOGLOBIN 12.6 g/dL (12.0-15.5); MEAN CORPUSCULAR HEMOGLOBIN 30.7 pg (27.0-33.4); MEAN CORPUSCULAR HGB CONC 33.8 g/dL (32.0-36.0); MEAN CORPUSCULAR VOLUME 91 fl (80-97); PLATELET COUNT 229 10^3/uL (150-450); WHITE BLOOD COUNT 6.6 10^3/uL (4.0-10.5)
[2019-03-13 14:32] LABS: INTERNATIONAL RATION (INR) 1.07; PROTHROMBIN TIME 13.9 SEC (11.4-15.4)
[2019-03-13 14:33] LABS: PARTIAL THROMBOPLASTIN TIME 29.6 SEC (23.5-35.8)
--- NOTE | 2019-03-13 23:48 | EKG REPORT ---
SEVERITY:- NORMAL ECG - SINUS RHYTHM : Confirmed by: Dilma Padilla 13-Mar-2019 23:47:46
[~2019-03-14 05:40] MED LIST: CEFAZOLIN 1 GM/D5W RTU 1 GM/50 ML RTUPB IV ONE; CEFAZOLIN 1 GM/D5W RTU 1 GM/50 ML RTUPB IV PRN
[2019-03-14] MEDS ORDERED: MIDAZOLAM 2 MG/2 ML INJ ONE (06:48)
[2019-03-14] MEDS ORDERED: FENTANYL CITRATE INJ/PF 100 MCG/2 ML AMPUL ONE (06:48)
[2019-03-14] MEDS ORDERED: PROPOFOL INJ 200 MG/20 ML VIAL IV ONE (06:48)
[2019-03-14] MEDS ORDERED: ALBUTEROL SULFATE 0.083% NEB 2.5 MG/3 ML AMPUL NEB ONE (06:56)
[2019-03-14] MEDS ORDERED: DEXAMETHASONE SOD PHOSPHATE INJ 4 MG/1 ML VIAL ONE (07:06)
[2019-03-14] MEDS ORDERED: ONDANSETRON HCL INJ/PF 4 MG/2 ML SDV ONE (07:06)
[2019-03-14] MEDS ORDERED: LIDOCAINE 1% INJ-PF (10 MG/ML) 30 ML SDV ONE (07:12)
[2019-03-14] MEDS ORDERED: SODIUM BICARBONATE 4.2% INJ (2.5 MEQ/5 ML) VIAL ONE (07:12)
[2019-03-14] MEDS ORDERED: BUPIVACAINE HCL 0.25% /EPINEPHRINE INJ/PF 30 ML SDV ONE ×2 (07:12→07:13)
[2019-03-14] MEDS ORDERED: HYDROMORPHONE HCL INJ/PF 2 MG/ML AMPULE ONE (07:54)
[2019-03-14] MEDS ORDERED: DIPHENHYDRAMINE HCL 50 MG/ML VIAL IV PRN (08:14)
[2019-03-14] MEDS ORDERED: FENTANYL CITRATE INJ/PF 100 MCG/2 ML AMPUL IV PRN ×3 (08:14)
[2019-03-14] MEDS ORDERED: MORPHINE SULFATE 10 MG/ML INJ IV PRN (08:14)
[2019-03-14] MEDS ORDERED: OXYCODONE-ACETAMINOPHEN 5-325 MG TABLET PO PRN ×3 (08:14→10:33)
[2019-03-14] MEDS ORDERED: PROMETHAZINE HCL INJ 25 MG/1 ML VIAL IV PRN (08:14)
[2019-03-14] MEDS ORDERED: ONDANSETRON HCL INJ/PF 4 MG/2 ML SDV IV PRN ×2 (08:14→10:33)
[2019-03-14] MEDS ORDERED: MEPERIDINE HCL/PF INJ 25 MG/1 ML DISP.SYRIN IV PRN (08:14)
[2019-03-14] MEDS ORDERED: CEFAZOLIN INJ 1 GM VIAL ONE (10:23)
[2019-03-14 13:10] VITALS: BP 102/62
--- NOTE | 2019-03-14 15:26 | RADIOLOGY REPORT (SQ) ---
EXAM DESCRIPTION: THORACOLUMBAR SPINE AP/LAT; NO CHG FLUORO COMPLETED DATE/TIME: 03/14/2019 2:48 pm REASON FOR STUDY: SPINAL STIMULATOR PLCMT ASST WITH FLUORO IN OR M54.16 RADICULOPATHY, LUMBAR REGIO N G89.4 CHRONIC PAIN SYNDROME Z79.01 ELECTRICIAN OUTSIDE (CURRENT) USE OF ANTICOAGULANTS COMPARISON: None. FLUOROSCOPY TIME: 4.0 minutes. 11 images saved to PACS. TECHNIQUE: Intra-operative images acquired during surgical procedure to evaluate progress. NUMBER OF IMAGES: 11 images. LIMITATIONS: None. FINDINGS: Images of the spine acquired during electrode placement. IMPRESSION: IMAGE(S) OBTAINED DURING PROCEDURE. COMMENT: Quality ID [id number]: Final reports for procedures using fluoroscopy that document radiation exp osure indices, or exposure time and number of fluorographic images (if radiation exposure indices are not available) Please consult full operative report of the attending physician for description of the procedure. TECHNICAL DOCUMENTATION: JOB ID: [id number] [employer]- All Rights Reserved Reading location - IP/workstation name: [email or web address]
--- NOTE | 2019-03-14 15:26 | RADIOLOGY REPORT (SQ) ---
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 FLUOROSCOPY TIME: 4.0 minutes. 11 images saved to PACS. TECHNIQUE: Intra-operative images acquired during surgical procedure to evaluate progress. NUMBER OF IMAGES: 11 images. LIMITATIONS: None. FINDINGS: Images of the spine acquired during electrode placement. IMPRESSION: IMAGE(S) OBTAINED DURING PROCEDURE. COMMENT: Quality ID [id number]: Final reports for procedures using fluoroscopy that document radiation exp osure indices, or exposure time and number of fluorographic images (if radiation exposure indices are not available) Please consult full operative report of the attending physician for description of the procedure. TECHNICAL DOCUMENTATION: JOB ID: [id number] [employer]- All Rights Reserved Reading location - IP/workstation name: [email or web address]
--- NOTE | 2019-03-16 18:55 | OPERATIVE REPORT E ---
Operative Report NAME: VALENTINA GUPTA : 1975 AGE: 43Y DATE OF SURGERY:03/14/2019 ROOM: PREOPERATIVE DIAGNOSIS: LUMBAR RADICULOPATHY AND CHRONIC LOW BACK PAIN. POSTOPERATIVE DIAGNOSIS: LUMBAR RADICULOPATHY AND CHRONIC LOW BACK PAIN. OPERATION: Implantation of dual Octrode spinal cord stimulator system and implantable pulse generator. SURGEON: SOPHIE MENDZE M.D. ASSISTANTS: None. ANESTHESIA: Local with sedation. INTRAVENOUS ANTIBIOTICS: 1 gram of Ancef given prior to incision. INTRAVENOUS FLUIDS: 1000 mL of balanced crystalloid solution given. ESTIMATED BLOOD LOSS: 5 mL. COMPLICATIONS: None. SPECIMENS REMOVED: None. OPERATIVE FINDINGS: Dual Octrode leads from the top of T8 extending to mid T10 placed. OPERATIVE INDICATIONS: The patient is a 43-year-old female with chronic low back pain and lumbar radiculopathy. The patient underwent successful trial of percutaneous spinal cord stimulation and agreed to proceed with permanent implantation. All risks and benefits were discussed in detail, including but not limited to bleeding, bruising, infection, injury to nerves, arteries, veins, loss of bowel or bladder function, paralysis and potentially . The patient agreed to proceed. PROCEDURE: The patient was accompanied to the operative suite after informed consent was obtained. The patient was positioned in prone position. All pressure points were padded. Standard ASA lines and monitors were applied. The patient's back was prepped and draped in sterile fashion using chlorhexidine gluconate solution and allowed the appropriate drying time. The drape used was an Ioban drape. Likewise, the C-arm was draped into the operative field. An appropriate timeout was performed as per [facility] standards. The T12-L1 interspace was visualized under AP fluoroscopy and marked. The skin overlying planned incision sites was anesthetized with buffered 1% lidocaine on a 25-gauge needle. Deeper tissues were subsequently infiltrated with 0.25% bupivacaine and 1:200,000 epinephrine using a 25-gauge needle. This was performed in the midline of the back as well as over the right flank, where the implantable pulse generator was to be placed. Incision was made using a 15 blade scalpel and subsequently deep and electrocautery dissection was performed to expose the prevertebral fascia. Once this was exposed and adequate hemostasis was insured, a 3.5-inch 25-gauge spinal needle was advanced into the deeper tissues to anesthetize the tract of the Tuohy needle for lead placement. A 16-gauge Tuohy needle provided in the Medtronic medical kit was advanced under intermittent AP and lateral fluoroscopic guidance to the posterior epidural space at T12-L1 in a right paramedian approach. Loss of resistance in the epidural space was attained using normal saline. When this was attained, the lead provided by the Medtronic kit was advanced easily into the posterior epidural space and posterior placement confirmed on lateral fluoroscopy. The lead was advanced easily to the top of the T8 vertebral body, extending into the mid T10 vertebral body. The procedure was then performed in the left paramedian approach at the exact same interspace with ease. When both leads were confirmed to be in the posterior epidural space, the leads were tested to ensure adequate impedances. At this point, a pursestring suture was placed with 0 Mersilene and an additional stay suture with 0 Mersilene as well. The needle was removed and slid over the lead that was in situ. Subsequently, the anchoring device was placed over the lead and anchored to the prevertebral fascia after the pursestring suture was secured. Both the pursestring suture and the stay suture were affixed to the anchoring device. Notably, AP and lateral fluoroscopic guidance was utilized to ensure no movement of the lead. This was performed in the exact same fashion on the opposite lead. Once anchoring devices were secured, attention was turned to the right flank, where an incision was made using a 15 blade scalpel and subsequently deep electrocautery dissection was used to create a pocket of approximately 1 cm deep. This pocket was large enough to facilitate the implantable pulse generator of note. Once adequate hemostasis was ensured, tunneling was then performed from the midline incision to the pocket. The leads were then tunneled to the pocket and affixed to the implantable pulse generator. Both leads were secured using a hex wrench. Impedances were checked and noted to be excellent. *------* was placed in the midline as well as around the posterior aspect of the implantable pulse generator, and the implantable pulse generator was placed into the pocket. Both incisions were copiously irrigated with dilute Betadine solution. At this point, an additional suture of 3-0 Vicryl was utilized to *------* loop in the midline of the back was secure. Closure subsequently ensued. The right buttock pocket was closed with 3-0 Vicryl suture in interrupted vertical mattress fashion. The skin was then closed with Dermabond tape and glue. The midline incision was closed in multi-fashion layer. The deep layer was closed with 2-0 Vicryl in interrupted vertical mattress fashion, and then the more superficial layer closed with 3-0 Vicryl in interrupted vertical mattress fashion. The skin was likewise closed here using Dermabond tape and glue. The patient's incision sites were dressed and dry. She was accompanied to the post anesthesia recovery unit in stable condition. She will have followup in 24 hours at [facility]. DICTATING PHYSICIAN: SOPHIE MENDEZ M.D. [id number] Y#: [id number] ID: [id number] JOB#: [id number] ACCT: [id number] cc:SOPHIE MENDEZ M.D. >
== END 2019-03-14 12:47 | disposition home or self-care (01) ==
LOC: OROUT 05:40
PROVIDERS: ATTEND Pain Medicine Interventional Pain Medicine
DX: M54.16 Radiculopathy, lumbar region (principal); G89.4 Chronic pain syndrome; J45.909 Unspecified asthma, uncomplicated; Z79.51 Long term (current) use of inhaled steroids; I25.10 Atherosclerotic heart disease of native coronary artery without angina pectoris; M06.9 Rheumatoid arthritis, unspecified; R00.2 Palpitations; M79.7 Fibromyalgia
CPT/HCPCS: 93005; 36415; 85027; 85610; 85730; 81025; 81001; 71046; 72080; 93010; 63685; 63650; C1778; C1820; J2250; J3490 ×3; J0690 ×2; J1100; J1170; J2405; J2704; A9270; 300; J3010

== ENCOUNTER 2019-08-16 20:03 | Emergency (ER) | payer MEDICARE, MEDICAID ==
[2019-08-16 20:10] VITALS: BP 120/73
--- NOTE | 2019-08-16 20:30 | ER Document Report ---
ED Medical Screen (RME) - General Chief Complaint: Rectal Pain Stated Complaint: ABDOMINAL PAIN Time Seen by Provider: 08/16/19 20:23 Primary Care Provider: MARLENA ESCOBEDO FNP-C [Primary Care Provider] - Follow up as needed TRAVEL OUTSIDE OF THE [place] IN LAST 30 DAYS: No - HPI Notes: 08/16/19 20:29 Patient is a 43-year-old female who is currently on chronic narcotics presents complaining of feeling constipated, mid abdominal cramping/pain, and possible hemorrhoid as she is complaining of anal pain. Patient dates that her symptoms have been ongoing for the past 3.5 days. Patient states that she does feel something painful near her rectum and has had a hemorrhoid before. She is otherwise able to eat and drink. She is urinating normally. No other vaginal discharge, odor, or bleeding. No fever. I have treated and performed a rapid initial assessment of this patient. A comprehensive ED assessment and evaluation of the patient, analysis of test results and completion of medical decision making process will be conducted by additional ED providers. PHYSICAL EXAMINATION: GENERAL: Well-appearing, well-nourished and in no acute distress. A&Ox4. Answers questions appropriately. Exam limited in triage and will need to be in gown and more thorough eval in exam room. - Related Data Allergies/Adverse Reactions: Penicillins Allergy (Verified 08/16/19 20:20) Past Medical History - Social History Chew tobacco use (# tins/day): No Frequency of alcohol use: None Drug Abuse: None - Past Medical History Cardiac Medical History: Reports: Hx Hypercholesterolemia, Hx Hypertension Denies: Hx Coronary Artery Disease, Hx Heart Attack Pulmonary Medical History: Reports: Hx Asthma Denies: Hx Bronchitis, Hx COPD, Hx Pneumonia Neurological Medical History: Denies: Hx Cerebrovascular Accident, Hx Seizures Renal/ Medical History: Denies: Hx Peritoneal Dialysis GI Medical History: Reports: Hx Gastroesophageal Reflux Disease Musculoskeltal Medical History: Reports Hx Arthritis - RA, Reports Hx Fibromyalgia, Reports Hx Musculoskeletal Deformity, Reports Hx Musculoskeletal Trauma Psychiatric Medical History: Reports: Hx Anxiety Traumatic Medical History: Reports: Hx Fractures - Compression fracture L1 May 2017 Past Surgical History: Reports: Hx Neurologic Surgery - Cervical fusion, Hx Orthopedic Surgery - R shoulder rotator cuff repair; R knee torn meniscus; R foot bunionectomy, - Immunizations Hx Diphtheria, Pertussis, Tetanus Vaccination: Yes Physical Exam - Vital signs Vitals: Temp Pulse Resp BP Pulse Ox 98.0 F 72 16 120/73 100 08/16/19 20:09 08/16/19 20:09 08/16/19 20:09 08/16/19 20:09 08/16/19 20:09 Course - Vital Signs Vital signs: Temp Pulse Resp BP Pulse Ox 98.0 F 72 16 120/73 100 08/16/19 20:09 08/16/19 20:09 08/16/19 20:09 08/16/19 20:09 08/16/19 20:09 Doctor's Discharge - Discharge Referrals: MARLENA ESCOBEDO FNP-C [Primary Care Provider] - Follow up as needed
[2019-08-16 21:08] LABS: ABSOLUTE EOSINOPHILS # (AUTO) 0.1 10^3/uL (0.0-0.6); ABSOLUTE LYMPHOCYTES (AUTO) 4.5 10^3/uL (0.5-4.7); ABSOLUTE MONOCYTES (AUTO) 0.6 10^3/uL (0.1-1.4); ABSOLUTE NEUT (AUTO) 3.4 10^3/uL (1.7-8.2); BASOPHILS % (AUTO) 0.4 % (0-2); EOSINOPHILS % (AUTO) 1.5 % (0-6); HEMATOCRIT 38.8 % (36.0-47.0); HEMOGLOBIN 12.9 g/dL (12.0-15.5); LYMPHOCYTES % (AUTO) 52.2 % (13-45); MEAN CORPUSCULAR HEMOGLOBIN 30.8 pg (27.0-33.4); MEAN CORPUSCULAR HGB CONC 33.4 g/dL (32.0-36.0); MEAN CORPUSCULAR VOLUME 92 fl (80-97); PLATELET COUNT 249 10^3/uL (150-450); RED BLOOD COUNT 4.21 10^6/uL (3.72-5.28); RED CELL DISTRIBUTION WIDTH 14.1 % (11.5-14.0); SEGMENTED NEUTROPHILS % (AUTO) 38.9 % (42-78); TOTAL CELLS COUNTED % (AUTO) 100 %; WHITE BLOOD COUNT 8.7 10^3/uL (4.0-10.5)
[2019-08-16 21:25] LABS: ANION GAP 10 (5-19); BLOOD UREA NITROGEN 13 mg/dL (7-20); CALCIUM 9.7 mg/dL (8.4-10.2); CARBON DIOXIDE 27 mmol/L (22-30); CHLORIDE 102 mmol/L (98-107); GLUCOSE 81 mg/dL (75-110)
[2019-08-16 21:26] LABS: ALBUMIN 4.6 g/dL (3.5-5.0); ALKALINE PHOSPHATASE 118 U/L (38-126); ASPARTATE AMINO TRANSFERASE 29 U/L (14-36); BILIRUBIN,DIRECT 0.2 mg/dL (0.0-0.4); BILIRUBIN,TOTAL 0.4 mg/dL (0.2-1.3); TOTAL PROTEIN 8.1 g/dL (6.3-8.2)
--- NOTE | 2019-08-16 21:53 | RADIOLOGY REPORT (SQ) ---
EXAM DESCRIPTION: XR ABDOMEN 1 VIEW (KUB) COMPLETED DATE/TME: 08/16/2019 20:28 CLINICAL HISTORY: 43 years Female ,mid abd pain COMPARISON: None. TECHNIQUE: Single view of the abdomen was provided.. FINDINGS: No free air. Stimulator with epidural leads in the lower thoracic spine. Postsurgical changes in the pelvis. No dilated loops of bowel to suggest obstruction. No abnormal calcifications noted. IMPRESSION: No acute plain film abnormality is identified.
== END 2019-08-16 22:38 | disposition left against medical advice (07) ==
LOC: ER 20:03
DX: K62.89 Other specified diseases of anus and rectum (principal); R10.9 Unspecified abdominal pain; I10 Essential (primary) hypertension; J45.909 Unspecified asthma, uncomplicated; Z79.899 Other long term (current) drug therapy; Z88.0 Allergy status to penicillin; Z53.20 Procedure and treatment not carried out because of patient's decision for unspecified reasons; Z87.19 Personal history of other diseases of the digestive system
CPT/HCPCS: 36415; 74018; 80053; 85025; 99281; 99283

== ENCOUNTER 2019-10-02 10:52 | Emergency (ER) | payer MEDICARE, MEDICAID ==
[2019-10-02 11:09] VITALS: BP 114/62
[2019-10-02] MEDS ORDERED: ONDANSETRON 4 MG TAB.RAPDIS PO ONE (12:39)
--- NOTE | 2019-10-02 12:40 | ER Document Report ---
ED Medical Screen (RME) - General Chief Complaint: Lower Abdominal Pain Stated Complaint: LOWER ABDOMINAL/PELVIC PAIN Time Seen by Provider: 10/02/19 12:34 Primary Care Provider: MARLENA ESCOBEDO FNP-C [Primary Care Provider] - Follow up as needed Mode of Arrival: Ambulatory Information source: Patient Notes: This 44-year-old female presents with lower abdominal pain and diarrhea since Monday. Denies fever vomiting reports she does feel nauseated. Denies past medical history of chronic abdominal issues such as IBS Crohn's diverticulitis. Denies pain with void. Reports she is not eating that much. Reports her stomach hurts more after she eats. Patient left lower quad tender to palpate I have greeted and performed a rapid initial assessment of this patient. A comprehensive ED assessment and evaluation of the patient, analysis of test results and completion of the medical decision making process will be conducted by additional ED providers. TRAVEL OUTSIDE OF THE [place] IN LAST 30 DAYS: No - Related Data Allergies/Adverse Reactions: Penicillins Allergy (Verified 10/02/19 12:37) Past Medical History - Past Medical History Cardiac Medical History: Reports: Hx Hypercholesterolemia, Hx Hypertension Denies: Hx Coronary Artery Disease, Hx Heart Attack Pulmonary Medical History: Reports: Hx Asthma Denies: Hx Bronchitis, Hx COPD, Hx Pneumonia Neurological Medical History: Denies: Hx Cerebrovascular Accident, Hx Seizures Renal/ Medical History: Denies: Hx Peritoneal Dialysis GI Medical History: Reports: Hx Gastroesophageal Reflux Disease Musculoskeltal Medical History: Reports Hx Arthritis - RA, Reports Hx Fibromyalgia, Reports Hx Musculoskeletal Deformity, Reports Hx Musculoskeletal Trauma Psychiatric Medical History: Reports: Hx Anxiety Traumatic Medical History: Reports: Hx Fractures - Compression fracture L1 May 2017 Past Surgical History: Reports: Hx Neurologic Surgery - Cervical fusion, Hx Orthopedic Surgery - R shoulder rotator cuff repair; R knee torn meniscus; R foot bunionectomy, - Immunizations Hx Diphtheria, Pertussis, Tetanus Vaccination: Yes Physical Exam - Vital signs Vitals: Temp Pulse Resp BP Pulse Ox 98.9 F 66 18 114/62 99 10/02/19 11:09 10/02/19 11:09 10/02/19 11:10/02/19 11:10/02/19 11:09 Course - Vital Signs Vital signs: Temp Pulse Resp BP Pulse Ox 98.9 F 66 18 114/62 99 10/02/19 11:09 10/02/19 11:09 10/02/19 11:09 10/02/19 11:09 10/02/19 11:09 Doctor's Discharge - Discharge Referrals: MARLENA ESCOBEDO FNP-C [Primary Care Provider] - Follow up as needed
[2019-10-02 13:43] LABS: APPEARANCE,URINE CLEAR; BILIRUBIN,URINE NEGATIVE (NEGATIVE); COLOR,URINE YELLOW; GLUCOSE, URINE NEGATIVE (NEGATIVE); KETONES,URINE NEGATIVE (NEGATIVE); PROTEIN,URINE NEGATIVE (NEGATIVE); URINE SPECIFIC GRAVITY 1.015; UROBILINOGEN,URINE NEGATIVE mg/dL (<2.0)
[2019-10-02 14:04] LABS: ABSOLUTE EOSINOPHILS # (AUTO) 0.2 10^3/uL (0.0-0.6); ABSOLUTE LYMPHOCYTES (AUTO) 3.1 10^3/uL (0.5-4.7); ABSOLUTE MONOCYTES (AUTO) 0.4 10^3/uL (0.1-1.4); ABSOLUTE NEUT (AUTO) 2.7 10^3/uL (1.7-8.2); BASOPHILS % (AUTO) 0.6 % (0-2); EOSINOPHILS % (AUTO) 3.5 % (0-6); HEMATOCRIT 39.7 % (36.0-47.0); HEMOGLOBIN 13.6 g/dL (12.0-15.5); LYMPHOCYTES % (AUTO) 48.1 % (13-45); MEAN CORPUSCULAR HEMOGLOBIN 31.4 pg (27.0-33.4); MEAN CORPUSCULAR HGB CONC 34.2 g/dL (32.0-36.0); MEAN CORPUSCULAR VOLUME 92 fl (80-97); MONOCYTES % (AUTO) 5.6 % (3-13); PLATELET COUNT 250 10^3/uL (150-450); RED BLOOD COUNT 4.34 10^6/uL (3.72-5.28); RED CELL DISTRIBUTION WIDTH 14.8 % (11.5-14.0); SEGMENTED NEUTROPHILS % (AUTO) 42.2 % (42-78); TOTAL CELLS COUNTED % (AUTO) 100 %; WHITE BLOOD COUNT 6.4 10^3/uL (4.0-10.5)
[2019-10-02 14:27] LABS: ALBUMIN 4.4 g/dL (3.5-5.0); ALKALINE PHOSPHATASE 110 U/L (38-126); ANION GAP 7 (5-19); ASPARTATE AMINO TRANSFERASE 28 U/L (14-36); BILIRUBIN,TOTAL 0.3 mg/dL (0.2-1.3); BLOOD UREA NITROGEN 12 mg/dL (7-20); CALCIUM 9.7 mg/dL (8.4-10.2); CARBON DIOXIDE 28 mmol/L (22-30); CHLORIDE 104 mmol/L (98-107); GLUCOSE 120 mg/dL (75-110); POTASSIUM 4.4 mmol/L (3.6-5.0); TOTAL PROTEIN 7.7 g/dL (6.3-8.2)
[2019-10-02] MEDS ORDERED: MORPHINE SULFATE 10 MG/ML INJ IV ONE (14:37)
--- NOTE | 2019-10-02 14:56 | ER Document Report ---
ED General - General Chief Complaint: Abdominal Pain Stated Complaint: LOWER ABDOMINAL/PELVIC PAIN Time Seen by Provider: 10/02/19 12:34 Primary Care Provider: MARLENA ESCOBEDO FNP-C [Primary Care Provider] - Follow up tomorrow Mode of Arrival: Ambulatory Notes: 44-year-old female presents for lower abdominal pain for the past 2 days with nausea and diarrhea. Patient states it is worse after she eats and when she goes to have a bowel movement. Patient states it is worse on the left side. Patient states she had an ultrasound of her liver done this morning and was told that there was a scar on her liver but otherwise everything was normal. Patient denies any vomiting, fever, chills, constipation, urinary symptoms, chest pain, or dyspnea. Denies blood in stool. TRAVEL OUTSIDE OF THE [place] IN LAST 30 DAYS: No - Related Data Allergies/Adverse Reactions: Penicillins Allergy (Verified 10/02/19 12:37) Home Medications: GABAPENTIN, FETANYL PATCH, OXYCODONE, TRAZADONE, SAVALLA, SIMVASTATIN, FLEXERIL, Past Medical History - General Information source: Patient - Social History Smoking Status: Never Smoker Frequency of alcohol use: None Drug Abuse: None Family History: Arthritis, Hypertension Patient has suicidal ideation: No Patient has homicidal ideation: No - Past Medical History Cardiac Medical History: Reports: Hx Hypercholesterolemia, Hx Hypertension Denies: Hx Coronary Artery Disease, Hx Heart Attack Pulmonary Medical History: Reports: Hx Asthma Denies: Hx Bronchitis, Hx COPD, Hx Pneumonia Neurological Medical History: Denies: Hx Cerebrovascular Accident, Hx Seizures Renal/ Medical History: Denies: Hx Peritoneal Dialysis GI Medical History: Reports: Hx Gastroesophageal Reflux Disease Musculoskeletal Medical History: Reports Hx Arthritis - RA, Reports Hx Fibromyalgia, Reports Hx Musculoskeletal Deformity, Reports Hx Musculoskeletal Trauma Psychiatric Medical History: Reports: Hx Anxiety Traumatic Medical History: Reports: Hx Fractures - Compression fracture L1 May 2017 Past Surgical History: Reports: Hx Neurologic Surgery - Cervical fusion, Hx Orthopedic Surgery - R shoulder rotator cuff repair; R knee torn meniscus; R foot bunionectomy, - Immunizations Hx Diphtheria, Pertussis, Tetanus Vaccination: Yes Review of Systems - Review of Systems Notes: Constitutional: Negative for fever. HENT: Negative for sore throat. Eyes: Negative for visual changes. Cardiovascular: Negative for chest pain. Respiratory: Negative for shortness of breath. Gastrointestinal: Positive for abdominal pain, nausea, diarrhea. Negative for vomiting or constipation. Genitourinary: Negative for dysuria. Musculoskeletal: Negative for back pain. Skin: Negative for rash. Neurological: Negative for headaches, weakness or numbness. 10 point ROS negative except as marked above and in HPI. Physical Exam - Vital signs Vitals: Temp Pulse Resp BP Pulse Ox 98.9 F 66 18 114/62 99 10/02/19 11:09 10/02/19 11:10/02/19 11:10/02/19 11:10/02/19 11:09 - Notes Notes: GENERAL: Well-appearing, well-nourished and in no acute distress. HEAD: Atraumatic, normocephalic. EYES: Extraocular movements intact, sclera anicteric, conjunctiva are normal. NECK: Normal range of motion, supple without lymphadenopathy or JVD. LUNGS: Breath sounds clear to auscultation bilaterally and equal. No wheezes rales or rhonchi. HEART: Regular rate and rhythm without murmurs, rubs or gallops. ABDOMEN: Soft, tenderness to LLQ and mid lower abdomen. No guarding, no rebound. No masses appreciated. EXTREMITIES: Normal range of motion, no pitting or edema. No clubbing or cyanosis. NEUROLOGICAL: Cranial nerves II through XII grossly intact. Normal speech, normal gait. PSYCH: Normal mood, normal affect. SKIN: Warm, Dry, normal turgor, no rashes or lesions noted. Course - Re-evaluation Re-evalutation: 10/02/19 Nontoxic, well appearing 44 y/o female presents with lower abdominal pain for 2 days with diarrhea and nausea. No vomiting. Abd soft, tenderness to LLQ and mid lower abdomen. PE otherwise unremarkable. Afebrile. Labs show no leukocytosis, no anemia, and is otherwise unremarkable. CT abdomen/pelvis was ordered. Morphine and zofran ordered. IV fluid bolus ordered. 10/02/19 CT abdomen/pelvis negative. Discussed all results with pt. Pelvic offered but pt refused. Pt given close follow up with PCP and strict follow up with PCP. Pt voices understanding and agrees with plan fo care. - Vital Signs Vital signs: Temp Pulse Resp BP Pulse Ox 98.9 F 66 18 114/62 99 10/02/19 11:09 10/02/19 11:20 11:09 10/02/19 11:09 10/02/19 11:09 - Laboratory Result Diagrams: 10/02/19 13:40 10/02/19 13:40 Laboratory results interpreted by me: 10/02/19 10/02/19 10/02/19 12:15 13:40 13:40 RDW 14.8 H Lymph % (Auto) 48.1 H Glucose 120 H Urine Blood SMALL H Discharge - Discharge Clinical Impression: Lower abdominal pain, Nausea Diarrhea Qualifiers: Diarrhea type: unspecified type Qualified Code(s): R19.7 - Diarrhea, unspecified Condition: Stable Disposition: HOME, SELF-CARE Instructions: Abdominal Pain ([facility]) Additional Instructions: Your CT abdomen/pelvis was normal. Please take medication as prescribed. Follow up with your primary care doctor in 2 days. Return immediately to ER for any wor sening symptoms, including worsening abdominal pain, vomiting not controlled by medication, blood in stool, inability to defecate, not being able to pass gas, abdominal distention, fever, or any other symptoms that are concerning to you. Prescriptions: Ondansetron [Zofran Odt 4 mg Tablet] 4 mg PO Q4HP PRN #30 tab.rapdis PRN Reason: Dicyclomine HCl [Bentyl 20 mg Tablet] 20 mg PO QID #40 tablet Forms: Return to Work Referrals: MARLENA ESCOBEDO FNP-C [Primary Care Provider] - Follow up tomorrow
[2019-10-02] MEDS ORDERED: NORMAL SALINE 1000 ML 1,000 ML IV ONE (14:57)
--- NOTE | 2019-10-02 15:37 | RADIOLOGY REPORT (SQ) ---
EXAM DESCRIPTION: CT ABD/PELVIS WITH IV ONLY COMPLETED DATE/TIME: 10/02/2019 3:19 pm REASON FOR STUDY: LLQ abd pain COMPARISON: CT 10/24/2018. TECHNIQUE: CT scan of the abdomen and pelvis performed using helical scanning technique with dynamic intravenous contrast injection. No oral contrast. Images reviewed with lung, soft tissue, and bone windows. Reconstructed coronal and sagittal MPR images reviewed. Delayed images for evaluation of the urinary system also acquired. All images stored on PACS. All CT scanners at this facility use dose modulation, iterative reconstruction, and/or weight based d osing when appropriate to reduce radiation dose to as low as reasonably achievable (ALARA). [facility]: Dose Right [facility]: CareDose [facility]: Dose Right [facility]: Teradose 4D [facility]: Tipping Bucket CONTRAST TYPE AND DOSE: contrast/concentration: Isovue 350.00 mg/ml; Total Contrast Delivered: 89.0 ml; Total Saline Delivered: 70.0 ml RENAL FUNCTION: None required. The patient is less than 50 years old. RADIATION DOSE: CT Rad equipment meets quality standard of care and radiation dose reduction techniq ues were employed. CTDIvol: 8.2 - 11.4 mGy. DLP: 966 mGy-cm.. LIMITATIONS: None. FINDINGS: LOWER CHEST: No significant findings. No nodules or infiltrates. LIVER: Normal size. No masses. No dilated ducts. SPLEEN: Normal size. No focal lesions. PANCREAS: No masses. No significant calcifications. No adjacent inflammation or peripancreatic fluid collections. Pancreatic duct not dilated. GALLBLADDER: No identified stones by CT criteria. No inflammatory changes to suggest cholecystitis. ADRENAL GLANDS: No significant masses or asymmetry. RIGHT KIDNEY AND URETER: No solid masses. No significant calcifications. No hydronephrosis or hyd roureter. LEFT KIDNEY AND URETER: No solid masses. No significant calcifications. No hydronephrosis or hydr oureter. AORTA AND VESSELS: No aneurysm. No dissection. Renal arteries, SMA, celiac without stenosis. RETROPERITONEUM: No retroperitoneal adenopathy, hemorrhage or masses. BOWEL AND PERITONEAL CAVITY: No masses or inflammatory changes. No free fluid or peritoneal masses. APPENDIX: The appendix is prominent measuring 8 mm. There is gas throughout the lumen with no periap pendiceal inflammatory change to suggest appendicitis. PELVIS: Unremarkable urinary bladder. Evidence of prior tubal ligation. No free fluid or adenopathy . ABDOMINAL WALL: No masses. No hernias. BONES: No significant or acute findings. L1 superior endplate Schmorl's node, stable. OTHER: Spinal stimulator hardware within the right gluteal region and spinal canal. IMPRESSION: No evidence of acute intra-abdominal/pelvic process or findings to explain patient's sym ptoms. TECHNICAL DOCUMENTATION: JOB ID: [id number] Quality ID # [id number]: Final reports with documentation of one or more dose reduction techniques (e.g., Au tomated exposure control, adjustment of the mA and/or kV according to patient size, use of iterative reconstruction technique) 2010 [employer]- All Rights Reserved Reading location - IP/workstation name: [email or web address]
[2019-10-02] MEDS ORDERED: DICYCLOMINE HCL INJ 20 MG/2 ML AMPULE IM ONE (16:46)
== END 2019-10-02 17:26 | disposition home or self-care (01) ==
LOC: ER 10:52
DX: R10.30 Lower abdominal pain, unspecified (principal); R19.7 Diarrhea, unspecified; R11.0 Nausea; E78.00 Pure hypercholesterolemia, unspecified; I10 Essential (primary) hypertension; Z88.0 Allergy status to penicillin; Z98.1 Arthrodesis status
CPT/HCPCS: 36415; 74177; 80053; 81001; 83690; 84703; 85025; 99284; J0500; J2270; J7030; S0119

== ENCOUNTER 2019-10-15 02:06 | Emergency (ER) | payer MEDICARE, MEDICAID ==
[2019-10-15 03:10] LABS: ABSOLUTE EOSINOPHILS # (AUTO) 0.3 10^3/uL (0.0-0.6); ABSOLUTE LYMPHOCYTES (AUTO) 4.3 10^3/uL (0.5-4.7); ABSOLUTE MONOCYTES (AUTO) 0.8 10^3/uL (0.1-1.4); ABSOLUTE NEUT (AUTO) 3.2 10^3/uL (1.7-8.2); BASOPHILS % (AUTO) 0.5 % (0-2); EOSINOPHILS % (AUTO) 3.2 % (0-6); HEMATOCRIT 38.3 % (36.0-47.0); HEMOGLOBIN 12.9 g/dL (12.0-15.5); LYMPHOCYTES % (AUTO) 49.7 % (13-45); MEAN CORPUSCULAR HGB CONC 33.7 g/dL (32.0-36.0); MEAN CORPUSCULAR VOLUME 92 fl (80-97); MONOCYTES % (AUTO) 8.9 % (3-13); PLATELET COUNT 245 10^3/uL (150-450); RED BLOOD COUNT 4.15 10^6/uL (3.72-5.28); RED CELL DISTRIBUTION WIDTH 14.5 % (11.5-14.0); SEGMENTED NEUTROPHILS % (AUTO) 37.7 % (42-78); TOTAL CELLS COUNTED % (AUTO) 100 %; WHITE BLOOD COUNT 8.6 10^3/uL (4.0-10.5)
[2019-10-15 03:26] LABS: ALBUMIN 4.1 g/dL (3.5-5.0); ALKALINE PHOSPHATASE 98 U/L (38-126); ANION GAP 7 (5-19); ASPARTATE AMINO TRANSFERASE 39 U/L (14-36); BILIRUBIN,DIRECT 0.1 mg/dL (0.0-0.4); BILIRUBIN,TOTAL 0.3 mg/dL (0.2-1.3); BLOOD UREA NITROGEN 13 mg/dL (7-20); CALCIUM 9.4 mg/dL (8.4-10.2); CARBON DIOXIDE 30 mmol/L (22-30); CHLORIDE 104 mmol/L (98-107); CREATINE KINASE 113 U/L (30-135); GLUCOSE 138 mg/dL (75-110); POTASSIUM 4.2 mmol/L (3.6-5.0); TOTAL PROTEIN 7.2 g/dL (6.3-8.2)
[2019-10-15 03:41] LABS: CREATINE KINASE MB 0.53 ng/mL (<4.55)
[2019-10-15 03:42] LABS: TROPONIN I < 0.012 ng/mL
[2019-10-15] MEDS ORDERED: KETOROLAC TROMETHAMINE 60 MG/2 ML SDV IM ONE (04:27)
--- NOTE | 2019-10-15 04:34 | RADIOLOGY REPORT (SQ) ---
EXAM DESCRIPTION: XR CHEST 2 VIEWS COMPLETED DATE/TME: 10/15/2019 00:00 CLINICAL HISTORY: 44 years, Female, chest pain COMPARISON: March 13, 2019 NUMBER OF VIEWS: 2 TECHNIQUE: LIMITATIONS: None. FINDINGS: Cardiomediastinal silhouette is top normal. Lungs grossly clear. No effusion. No pneumothorax Postsurgical change to the spine. IMPRESSION: No acute intrathoracic process copyright 2010 [employer]- All Rights Reserved
--- NOTE | 2019-10-15 05:02 | ER Document Report ---
Entered by APRIL RUSS SCRIBE 10/15/19 0331 Acting as scribe for:DANNI KAUR MD ED General - General Chief Complaint: Shoulder Pain Stated Complaint: CHEST PAIN/SHOULDER PAIN Time Seen by Provider: 10/15/19 03:13 Primary Care Provider: MARLENA ESCOBEDO FNP-C [NO LOCAL MD] - Follow up as needed Information source: Patient Notes: 44-year-old female presents with to the emergency department complaining of right shoulder pain that radiates down her arm that began 2 hours prior to arrival. Patient stated that she woke up from her sleep to coming home and she felt the pain in her shoulder. Patient said that 15 minutes later she began to feel a "warm feeling" in her throat. Patient is taking tetracyclin for a positive test to H. Pylori. Patient says that her pain feels like "something is stuck in back". Patient denies injury to shoulder, recent lifting, pulling, or pushing. Patient reports cough. TRAVEL OUTSIDE OF THE [place] IN LAST 30 DAYS: No - Related Data Allergies/Adverse Reactions: Penicillins Allergy (Verified 10/02/19 12:37) Home Medications: Ompreozole. Flagyl Past Medical History - General Information source: Patient - Social History Smoking Status: Former Smoker Cigarette use (# per day): No Chew tobacco use (# tins/day): No Family History: Arthritis, Hypertension Patient has suicidal ideation: No Patient has homicidal ideation: No - Past Medical History Cardiac Medical History: Reports: Hx Hypercholesterolemia, Hx Hypertension Pulmonary Medical History: Reports: Hx Asthma GI Medical History: Reports: Hx Gastroesophageal Reflux Disease Musculoskeletal Medical History: Reports Hx Arthritis - RA, Reports Hx Fibromyalgia, Reports Hx Musculoskeletal Deformity, Reports Hx Musculoskeletal Trauma Psychiatric Medical History: Reports: Hx Anxiety Traumatic Medical History: Reports: Hx Fractures - Compression fracture L1 Oc tober 2017 Past Surgical History: Reports: Hx Neurologic Surgery - Cervical fusion, Hx Orthopedic Surgery - R shoulder rotator cuff repair; R knee torn meniscus; R foot bunionectomy, - Immunizations Hx Diphtheria, Pertussis, Tetanus Vaccination: Yes Review of Systems - Review of Systems Constitutional: No symptoms reported EENT: No symptoms reported Cardiovascular: No symptoms reported Respiratory: See HPI, Cough Gastrointestinal: No symptoms reported Genitourinary: No symptoms reported Female Genitourinary: No symptoms reported Musculoskeletal: Joint pain - Right shoulder Skin: No symptoms reported Hematologic/Lymphatic: No symptoms reported Neurological/Psychological: No symptoms reported -: Yes All other systems reviewed and negative Physical Exam - Vital signs Vitals: Temp Pulse Resp BP Pulse Ox 98.3 F 68 18 139/75 H 99 10/15/19 02:19 10/15/19 02:19 10/15/19 02:19 10/15/19 02:19 10/15/19 02:19 - Notes Notes: Physical Exam: General: Alert, appears well. HEENT: Normocephalic. Atraumatic. PERRL. Extraocular movements intact. Oropharynx clear. Neck: Supple. Non-tender. Respiratory: No respiratory distress. Clear and equal breath sounds bilaterally. Cardiovascular: Regular rate and rhythm. Abdominal: Normal Inspection. Non-tender. No distension. Normal Bowel Sounds. Back: Muscle spasms in right super scapula. Anterior pectoral muscle tenderness to palpation with full range of motion. Extremities: Moves all four extremities. Upper extremities: Normal inspection. Normal ROM. Lower extremities: Normal inspection. No edema. Normal ROM. Neurological: Normal cognition. AAOx4. Normal speech. Psychological: Normal affect. Normal Mood. Skin: Warm. Dry. Normal color. Course - Re-evaluation Re-evalutation: 10/15/19 04:54 Patient is lying in bed appears more comfortable at this time. Patient still complains of pain around her right shoulder blade. - Vital Signs Vital signs: Temp Pulse Resp BP Pulse Ox 98.3 F 68 18 139/75 H 100 10/15/19 02:19 10/15/19 02:19 10/15/19 02:19 10/15/19 02:19 10/15/19 03:37 - Laboratory Result Diagrams: 10/15/19 02:45 10/15/19 02:45 Laboratory results interpreted by me: 10/15/19 10/15/19 02:45 02:45 RDW 14.5 H Lymph % (Auto) 49.7 H Seg Neutrophils % 37.7 L Glucose 138 H AST 39 H ALT 47 H 10/15/19 04:55 Patient has mild elevation in ALT AST. Glucose is 138 patient denies any knowledge of any gallstones. And does not hurt in her right upper quadrant of her abdomen. Patient has a diagnosis of H. pylori and began medications in the past 24 hours taking tetracycline metronidazole omeprazole tablets. Patient states that the taking medications is when she started having the pain in her shoulder. - Diagnostic Test Radiology reviewed: Image reviewed, Reports reviewed - EKG Interpretation by Me Additional EKG results interpreted by me: 10/15/19 04:58 Twelve-lead EKG 10/15/2019 2215 shows normal sinus rhythm rate of 63 borderline T wave abnormalities anterior leads no acute ST changes to suggest ischemia. Discharge - Discharge Clinical Impression: Shoulder pain, Musculoskeletal back pain Condition: Stable Disposition: HOME, SELF-CARE Additional Instructions: Muscle Strain You have strained a muscle -- torn the fibers within the muscle. This often occurs with strenuous exertion, or during an injury that suddenly stretches the muscle. The seriousness of a strain varies. Some strains heal within days, others cause problems for months. X-rays cannot show a muscle strain. X-rays are taken only if symptoms suggest that a fracture could be present. The usual treatment of a muscle strain is rest and ice packs. Sometimes, a sling, splint, or crutches may be necessary to rest the muscle. The muscle can be used again once pain subsides. Severe strains require a special exercise and stretching program to prevent permanent stiffness and disability. Your doctor will advise you if this will be necessary. Call the doctor immediately if pain or swelling becomes severe, or if num bness or discoloration develop. Recommend continue your usual medications as you take. In addition for your muscle strain recommend Tylenol extra strength 500 mg 2 every 12 hours as needed for muscle strain pain. Referrals: MARLENA ESCOBEDO FNP-C [NO LOCAL MD] - Follow up as needed I personally performed the services described in the documentation, reviewed and edited the documentation which was dictated to the scribe in my presence, and it accurately records my words and actions.
[2019-10-15 06:22] VITALS: BP 104/62
--- NOTE | 2019-10-15 17:04 | EKG REPORT ---
SEVERITY:- BORDERLINE ECG - SINUS RHYTHM BORDERLINE T ABNORMALITIES, ANTERIOR LEADS : Confirmed by: Giselle Galvez MD 15-Oct-2019 17:04:10
== END 2019-10-15 06:19 | disposition home or self-care (01) ==
LOC: ER 02:06
DX: M25.511 Pain in right shoulder (principal); R07.9 Chest pain, unspecified; M54.9 Dorsalgia, unspecified; E78.00 Pure hypercholesterolemia, unspecified; I10 Essential (primary) hypertension; Z88.0 Allergy status to penicillin; Z98.1 Arthrodesis status
CPT/HCPCS: 93005; 99284; 96372; 36415; 82553; 82550; 85025; 80053; 84484; 71046; 93010; J1885

== ENCOUNTER 2020-03-06 17:14 | Emergency (ER) | payer MEDICARE, MEDICAID ==
[2020-03-06 18:08] LABS: ABSOLUTE LYMPHOCYTES (AUTO) 3.3 10^3/uL (0.5-4.7); ABSOLUTE MONOCYTES (AUTO) 0.8 10^3/uL (0.1-1.4); ABSOLUTE NEUT (AUTO) 5.5 10^3/uL (1.7-8.2); BASOPHILS % (AUTO) 0.3 % (0-2); EOSINOPHILS % (AUTO) 0.2 % (0-6); HEMOGLOBIN 13.4 g/dL (12.0-15.5); LYMPHOCYTES % (AUTO) 34.6 % (13-45); MEAN CORPUSCULAR HEMOGLOBIN 31.9 pg (27.0-33.4); MEAN CORPUSCULAR HGB CONC 33.6 g/dL (32.0-36.0); MEAN CORPUSCULAR VOLUME 95 fl (80-97); MONOCYTES % (AUTO) 7.8 % (3-13); PLATELET COUNT 258 10^3/uL (150-450); RED BLOOD COUNT 4.21 10^6/uL (3.72-5.28); RED CELL DISTRIBUTION WIDTH 14.8 % (11.5-14.0); SEGMENTED NEUTROPHILS % (AUTO) 57.1 % (42-78); TOTAL CELLS COUNTED % (AUTO) 100 %; WHITE BLOOD COUNT 9.6 10^3/uL (4.0-10.5)
[2020-03-06 18:26] LABS: APPEARANCE,URINE SLIGHTLY-CLOUDY; BILIRUBIN,URINE NEGATIVE (NEGATIVE); COLOR,URINE AMBER; GLUCOSE, URINE NEGATIVE (NEGATIVE); KETONES,URINE TRACE mg/dL (NEGATIVE); LEUKOCYTE ESTERASE,URINE TRACE (NEGATIVE); NITRITE,URINE NEGATIVE (NEGATIVE); PROTEIN,URINE 100 mg/dL (NEGATIVE)
[2020-03-06 18:37] LABS: ACETAMINOPHEN < 10 ug/mL (10-30); ALBUMIN 4.9 g/dL (3.5-5.0); ALCOHOL < 10 mg/dL (NONE DETECTED); ALKALINE PHOSPHATASE 108 U/L (38-126); ANION GAP 8 (5-19); ASPARTATE AMINO TRANSFERASE 31 U/L (14-36); BILIRUBIN,DIRECT 0.3 mg/dL (0.0-0.4); BILIRUBIN,TOTAL 0.5 mg/dL (0.2-1.3); BLOOD UREA NITROGEN 18 mg/dL (7-20); CALCIUM 10.3 mg/dL (8.4-10.2); CARBON DIOXIDE 30 mmol/L (22-30); CHLORIDE 103 mmol/L (98-107); GLUCOSE 100 mg/dL (75-110); POTASSIUM 3.7 mmol/L (3.6-5.0); SALICYLATE < 1.0 mg/dL (2.0-20.0); TOTAL PROTEIN 8.6 g/dL (6.3-8.2)
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
[2020-03-06 19:04] LABS: URINE AMPHETAMINES SCREEN NEGATIVE; URINE BARBITURATES SCREEN NEGATIVE; URINE BENZODIAZEPINES SCREEN NEGATIVE; URINE COCAINE SCREEN NEGATIVE; URINE MARIJUANA (THC) SCREEN NEGATIVE; URINE METHADONE SCREEN NEGATIVE; URINE PHENCYCLIDINE SCREEN NEGATIVE
[2020-03-06] MEDS: VENLAFAXINE HCL 37.5 MG CAP.SR.24H PO SCH (20:33)
[2020-03-06] MEDS: BUSPIRONE HCL 10 MG TABLET PO SCH (20:33)
[2020-03-07] MEDS ORDERED: DIPHENHYDRAMINE HCL 25 MG CAPSULE PO ONE (00:24)
--- NOTE | 2020-03-07 08:44 | ER Document Report ---
Doctor's Note Notes: 03/07/20 08:44 As notified by the nurse that the patient desires medication to help her sleep. Patient reports that she will leave if she cannot get any medication help her sleep. Benadryl was ordered for the patient.
[2020-03-07] MEDS: VENLAFAXINE HCL 37.5 MG CAP.SR.24H PO SCH (10:07)
[2020-03-07] MEDS: BUSPIRONE HCL 10 MG TABLET PO SCH (10:07)
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
--- NOTE | 2020-03-07 11:50 | EKG REPORT ---
SEVERITY:- NORMAL ECG - SINUS RHYTHM : Confirmed by: Adarsh Rascon MD 07-Mar-2020 11:49:42
--- NOTE | 2020-03-07 12:44 | PSYCHOLOGICAL NOTE ---
Psych Note - Psych Note Date seen by psych provider: 03/07/20 Time seen by psych provider: 11:30 Psych Note: For consult: Suicidal ideation Check in conducted with patient: Patient denies any thoughts of wanting to harm herself or others (including her ). Patient states that she just wants to be able to move forward. She reports strong lurdes and confirms she will continue to use her support network through her adventist. There was some concern that the patient had some difficulty with Bible study group which resulted in patient's current despondent presentation. She confirms that this occurred and that she has learned not to trust the person that she did and plans to discuss her thoughts and feelings with the Bible study assembler wire group. She identifies many other people within the adventist that she can continue to rely on. Acacian recommendations per [facility]'s contracted psychiatrist Dr. Arcadio BANSAL are as follows Effexor 37.5 mg daily BuSpar 5 mg twice daily prazosin 2 mg nightly Clinical presentation Marital discord Situational depression Impression\plan: Patient is recommended for rescind of IVC and is cleared from acute psychiatric services: Paperwork is signed and placed in patient's chart. Patient is currently going through significant marital discord with infidelity and separation. Patient has a strong support network through her adventist and lurdes-based beliefs. While events occurred during a Bible study that contributed to her need to come to [facility] ED, she reports no concerns in regards to continuing working with her adventist. Patient is able to appropriately engage in building her plan of care i.e. discussing coping skills, support network, medication management, possible therapy. Patient does not live in the local community however has been provided local resource list if she chooses to see a provider in this area. Dr. García was consulted in the care management of this patient; tending physicians in agreement with recommendations and disposition.
--- NOTE | 2020-03-07 12:51 | ER Document Report ---
Doctor's Note Notes: 03/07/20 12:50 PHYSICAL EXAMINATION: GENERAL: Appears well, healthy, well-nourished, no acute distress. LUNGS: Equal breath sounds bilaterally and clear to auscultation. No wheezes rales or rhonchi. CARDIOVASCULAR: S1-S2, regular rate, regular rhythm. Radial pulses 2+, normal. ABDOMEN: Normoactive bowel sounds. Soft, nontender, no guarding, no rebound tenderness, and no masses palpated. PSYCH: Appears slightly depressed, but states that she feels better than yesterday. Mental health has recommended the patient start Effexor 37.5 mg daily, BuSpar 5 mg twice a day, and prazosin at night. Orders have been placed. Patient is to follow-up with mental health on an outpatient basis. She is in agreement with this plan. Follow-up precautions were given. Verbal discharge instructions were given to the patient. They verbalized understanding. They are stable for discharge.
[2020-03-07 13:05] VITALS: BP 120/72
== END 2020-03-07 13:00 | disposition home or self-care (01) ==
LOC: ER 17:14
DX: R45.851 Suicidal ideations (principal); F32.9 Major depressive disorder, single episode, unspecified; M54.2 Cervicalgia; R51 Headache; Y09 Assault by unspecified means
CPT/HCPCS: 93005; 99285; 36415; 80307 ×4; 85025; 80053; 81001; 93010; A9270 ×5; J3490